=== PATIENT | female | born 1975 ===

== ENCOUNTER 2019-03-23 19:28 | Inpatient (IN) | payer OTHER ==
[~2019-03-23] VITALS: Ht 152.4 cm; Wt 64.0 kg
[2019-03-23 20:09] LABS: BASOPHILS ABSOLUTE AUTO 0.06 K/mm3 (0.00-0.23); BASOPHILS PERCENT AUTO 1 % (0-2); EOSINOPHILS ABSOLUTE AUTO 0.03 K/mm3 (0.00-0.68); EOSINOPHILS PERCENT AUTO 1 % (0-6); Hematocrit 40.2 % (33.0-51.0); Hemoglobin 13.2 g/dL (11.5-16.0); IMMATURE GRAN ABSOLUTE AUTO 0.02 K/mm3 (0.00-0.10); IMMATURE GRAN PERCENT AUTO 0 % (0-1); LYMPHOCYTES ABSOLUTE AUTO 0.96 K/mm3 (0.84-5.20); LYMPHOCYTES PERCENT AUTO 17 % (21-46); MONOCYTES ABSOLUTE AUTO 0.36 K/mm3 (0.16-1.47); MONOCYTES PERCENT AUTO 6 % (4-13); Mean Corpuscular HGB 33.8 pg (26.0-34.0); Mean Corpuscular HGB Conc 32.8 g/dL (31.5-36.5); Mean Corpuscular Volume 103 fL (80-100); Mean Platelet Volume 10.5 fL (9.1-12.4); NEUTROPHILS ABSOLUTE AUTO 4.22 K/mm3 (1.96-9.15); NEUTROPHILS PERCENT AUTO 75 % (41-73); RDW Coefficient Variation 14.5 % (11.7-14.2); RDW Standard Deviation 54.5 fL (35.1-46.3); Red Blood Cell Count 3.91 M/mm3 (3.80-5.20); White Blood Cell Count 5.65 K/mm3 (4.00-11.30)
[2019-03-23 20:16] LABS: Platelet Count 40 K/mm3 (150-400)
[2019-03-23 20:22] LABS: Alanine Aminotransfer (ALT/SGP 56 U/L (12-78); Albumin, Blood 1.5 g/dL (3.4-5.0); Albumin/Globulin Ratio 0.3 (0.8-1.8); Alk Phos 215 U/L (50-136); Anion Gap 5 mmol/L (6-16); Aspartate Aminotrans (AST/SGOT 244 U/L (12-37); Bilirubin, Total 4.3 mg/dL (0.1-1.0); Blood Urea Nitrogen 11 mg/dL (8-24); Bun/Creatinine Ratio 20.8 (12.0-20.0); CO2, Blood 26 mmol/L (21-32); Calcium, Blood 7.8 mg/dL (8.5-10.1); Chloride, Blood 106 mmol/L (98-108); Creatinine, Blood 0.53 mg/dL (0.40-1.00); Globulin, Blood 4.8 g/dL (2.2-4.0); Glomerular Filtration Rate >60 (60-); Glucose, Blood 99 mg/dL (70-99); Potassium, Blood 3.4 mmol/L (3.5-5.5); Sodium, Blood 137 mmol/L (136-145); Total Protein, Blood 6.3 g/dL (6.4-8.2)
[2019-03-23 20:46] LABS: International Normalized Ratio 1.53; Prothrombin Time Results 15.6 Sec (9.7-11.5)
[2019-03-23 23:23] LABS: Magnesium, Blood 1.4 mg/dL (1.6-2.4)
[2019-03-23 23:24] LABS: Thyroid Stimulating Hormone 3.53 uIU/mL (0.360-4.800)
--- NOTE | 2019-03-24 00:30 | NUR ---
ADMIT NOTE: ADMIT 43 YEAR OLD FEMALE TO ICU [address] CHAUDHARY SERVICE PER CHELA VIA ER. TRANSFER TO BED MONITOR PLACED SHOWING SINUS RHYTHM. HEART RATE 80'S-90'S. SLEEPY AWAKENS TO VERBAL STIMULI FOLLOWS DIRECTION HOWEVER FALLS BACK TO SLEEP IMMEDIATLY. LUNG SOUNDS CLEAR . SNORES WHEN SLEEPING. ABDOMEN SOFT WITH BOWEL SOUNDS FOUR QUADS. SPO2 95-97% SKIN WITH DRY RED PATCHES TO ARMS AND LEGS ALSO SCATTERED ECCYMOTIC AREAS TO SAME. JESSENIA MERCEDES UNABLE TO COMPLETE RELEASE OF MEDICAL INFORMATION AND BLOOD CONSENT SECONDARY UNABLE TO STAY AWAKE. CONTINUE TO MONITOR AND REPORT CHANGE IN PATIENT CONDITION CIWA LESS THAN 5. SEE FLOW SHEET.
[2019-03-24 03:19] LABS: BASOPHILS ABSOLUTE AUTO 0.06 K/mm3 (0.00-0.23); BASOPHILS PERCENT AUTO 1 % (0-2); EOSINOPHILS ABSOLUTE AUTO 0.06 K/mm3 (0.00-0.68); EOSINOPHILS PERCENT AUTO 1 % (0-6); Hematocrit 35.8 % (33.0-51.0); Hemoglobin 11.7 g/dL (11.5-16.0); IMMATURE GRAN ABSOLUTE AUTO 0.01 K/mm3 (0.00-0.10); IMMATURE GRAN PERCENT AUTO 0 % (0-1); LYMPHOCYTES ABSOLUTE AUTO 1.57 K/mm3 (0.84-5.20); LYMPHOCYTES PERCENT AUTO 29 % (21-46); MONOCYTES ABSOLUTE AUTO 0.35 K/mm3 (0.16-1.47); MONOCYTES PERCENT AUTO 7 % (4-13); Mean Corpuscular HGB 33.5 pg (26.0-34.0); Mean Corpuscular HGB Conc 32.7 g/dL (31.5-36.5); Mean Corpuscular Volume 103 fL (80-100); Mean Platelet Volume 10.9 fL (9.1-12.4); NEUTROPHILS ABSOLUTE AUTO 3.29 K/mm3 (1.96-9.15); NEUTROPHILS PERCENT AUTO 62 % (41-73); RDW Coefficient Variation 14.5 % (11.7-14.2); RDW Standard Deviation 54.9 fL (35.1-46.3); Red Blood Cell Count 3.49 M/mm3 (3.80-5.20); White Blood Cell Count 5.34 K/mm3 (4.00-11.30)
[2019-03-24 03:23] LABS: Platelet Count 35 K/mm3 (150-400)
[2019-03-24 03:34] LABS: Alanine Aminotransfer (ALT/SGP 46 U/L (12-78); Albumin, Blood 1.3 g/dL (3.4-5.0); Albumin/Globulin Ratio 0.3 (0.8-1.8); Alk Phos 166 U/L (50-136); Anion Gap 7 mmol/L (6-16); Aspartate Aminotrans (AST/SGOT 181 U/L (12-37); Bilirubin, Total 3.2 mg/dL (0.1-1.0); Blood Urea Nitrogen 11 mg/dL (8-24); Bun/Creatinine Ratio 23.9 (12.0-20.0); CO2, Blood 26 mmol/L (21-32); Calcium, Blood 7.3 mg/dL (8.5-10.1); Chloride, Blood 109 mmol/L (98-108); Creatinine, Blood 0.46 mg/dL (0.40-1.00); Glomerular Filtration Rate >60 (60-); Glucose, Blood 104 mg/dL (70-99); Magnesium, Blood 1.4 mg/dL (1.6-2.4); Potassium, Blood 3.7 mmol/L (3.5-5.5); Sodium, Blood 142 mmol/L (136-145); Total Protein, Blood 5.3 g/dL (6.4-8.2)
--- NOTE | 2019-03-24 03:39 | NUR ---
NOTIFIED; DR CHAUDHARY NOTIFIED OF MG RESULTS NO ORDERS NOTED.
--- NOTE | 2019-03-24 04:00 | NUR ---
DR CHAUDHARY NOTIFIED OF PLATLET RESULTS OF 35. NO NEW ORDERS
--- NOTE | 2019-03-24 05:29 | NUR ---
SHIFT SUMMARY : RESTS QUIETLY WHEN UNDISTURBED AWAKENS EASILY. UP TO BSC TO VOID DARK RUSTAM URINE. GAIT UNSTEADY BED ALARM ON SECONDARY TO IMPULSIVE BEHAVIORS. MONITOR INTACT SHOWING SINUS RHYTHM . HEART RATE 80'S-90'S. C/O SLIGHT HEADACHE AND NAUSEA. LUNGS REMAIN CLEAR WITH SPO2 95-98% SNORES WHEN ASLEEP. ABDOMEN SOFT WITH BOWEL SOUNDS FOUR QUADS. CONTINUE TO MONITOR AND REPORT CHANGE IN PATIENT CONDITION. CIWA REMAINS LESS THAN 5
--- NOTE | 2019-03-24 08:04 | NUR ---
ASSUMED CARE / DR TURK: REPORT RECEIVED FROM MARLA An RN. ASSUMED CARE OF THIS PT AT APPROX 0700. PT IS DROWSY, SHE AWAKENS EASILY TO VERBAL STIMULI BUT FALLS BACK ASLEEP QUICKLY. WHEN AWAKE, SHE IS A&O, PLEASANT & COOPERATIVE. CIWA CHARTED. PROVIDER AT BEDSIDE. SHE HAS SLEPT THROUGH HIS VISIT/ASSESSMENT. CONTINUE ETOH W/D ORDERS & MEDS. NO OTHER CHANGES AT THIS TIME. WILL CONTINUE TO MONITOR & UPDATE NEEDED.
--- NOTE | 2019-03-24 14:30 | NUR ---
CALL TO DR TURK: PT STS HER LAST DRINK WAS "AT THE BEGINNING OF LAST WEEK, EITHER SATURDAY OR SATURDAY" (03/15 OR 03/16). CALL TO PROVIDER TO NOTIFY HIM OF THIS INFO & OF PT's CONTINUED LOW CIWA SCORES < 5. DIET ORDER ALSO REQUESTED PT IS NOW MORE AWAKE & STATING HUNGER. PROVIDER STS THAT STATUS MAY BE CHANGED TO MED NO TELE & THAT REGULAR DIET MAY BE ORDERED. SEIZURE PRECAUTIONS TO REMAINS IN PLACE & MEDS TO REMAIN PRN ORDERED. WILL CONTINUE TO MONITOR & UPDATE NEEDED.
[2019-03-24 15:24] LABS: Source, Urine Clean Catch
[2019-03-24 16:08] LABS: Bilirubin, Urine Neg (Neg); Blood, Urine 2+ (Neg); Glucose Qualitative, Urine Neg (Neg); Ketones, Urine Neg (Neg); Leukocyte Esterase, Urine 1+ (Neg); Nitrite, Urine Neg (Neg); Protein, Urine Neg (Neg); Urobilinogen, Urine NORM (Normal)
[2019-03-24 16:23] LABS: U Amphetamine Screen Not Detected; U Barbituate Screen Not Detected; U Benzodiazapine Screen DETECTED; U Buprenorphine Screen Not Detected; U Cannabinoids Screen Not Detected; U Cocaine Screen Not Detected; U Methadone Screen Not Detected; U Methamphetamine Screen Not Detected; U Opiates Screen Not Detected; U Oxycodone Screen Not Detected; U Phencyclidine Screen Not Detected; U Propoxyphene Screen Not Detected
[2019-03-24 16:37] LABS: Appearance, Urine Hazy (Clear); Color, Urine Yellow (P-Yellow)
[2019-03-24 16:38] LABS: Squamous Epithelial Cells Mod /hpf (Few)
[2019-03-24 16:39] LABS: Bacteria Few /hpf
--- NOTE | 2019-03-24 17:40 | NUR ---
SHIFT SUMMARY / MED FLOOR ROOM ASSIGNMENT: NO ACUTE CHANGES THIS SHIFT. CIWA REMAINS < 5. PT A&O, MORE AWAKE THIS AFTERNOON. SHE STS GENERALIZED SORENESS FROM FALL DURING SEIZURE BUT HAS NO REQUEST FOR PAIN MEDS. LUNG SOUNDS ARE CLEAR T/O, PT ON RA W/ O2 SATS > 92%. TELE HAS BEEN REMOVED, BP STABLE. ABD IS ROUND, MILD DISTENTION & SOFT TO PALPATION. PARACENTESIS LAST WK IN [place] PER PT REPORT. PT VOIDS W/O DIFFICULTY, URINE SENT TO LAB PER ORDERS. SKIN UNCHANGED FROM AM ASSESSMENT, PSORIASIS PLAQUES PRESENT ON LEGS & SOME BRUISING ALSO NOTED TO THIGHS, PT STS BRUISING IS FROM FALL/ SEIZURES. SHE IS TOLERATING PO INTAKE OF FOOD/FLUIDS WELL W/ NO NAUSEA. ROOM 327 HAS BEEN ASSIGNED FOR TX. WILL CONTINUE TO MONITOR & REPORT OFF TO RN ASSUMING CARE.
--- NOTE | 2019-03-24 23:39 | NUR ---
03/24/191999 BOTH IV SITES ARE IN LEFT ANTECUBITAL AREA. ONE NEEDLE IS A 22G AND OTHER IS 20G.
[2019-03-25 05:04] LABS: Hematocrit 33.1 % (33.0-51.0); Hemoglobin 10.8 g/dL (11.5-16.0); Mean Corpuscular HGB 33.6 pg (26.0-34.0); Mean Corpuscular HGB Conc 32.6 g/dL (31.5-36.5); Mean Corpuscular Volume 103 fL (80-100); Mean Platelet Volume 11.6 fL (9.1-12.4); RDW Coefficient Variation 14.7 % (11.7-14.2); RDW Standard Deviation 55.3 fL (35.1-46.3); Red Blood Cell Count 3.21 M/mm3 (3.80-5.20); White Blood Cell Count 4.12 K/mm3 (4.00-11.30)
[2019-03-25 05:11] LABS: Platelet Count 47 K/mm3 (150-400)
[2019-03-25 05:32] LABS: Alanine Aminotransfer (ALT/SGP 34 U/L (12-78); Albumin, Blood 1.1 g/dL (3.4-5.0); Albumin/Globulin Ratio 0.3 (0.8-1.8); Alk Phos 131 U/L (50-136); Anion Gap 5 mmol/L (6-16); Aspartate Aminotrans (AST/SGOT 118 U/L (12-37); Bilirubin, Total 1.7 mg/dL (0.1-1.0); Blood Urea Nitrogen 8 mg/dL (8-24); Bun/Creatinine Ratio 17.8 (12.0-20.0); CO2, Blood 27 mmol/L (21-32); Calcium, Blood 7.2 mg/dL (8.5-10.1); Chloride, Blood 110 mmol/L (98-108); Creatinine, Blood 0.45 mg/dL (0.40-1.00); Globulin, Blood 3.8 g/dL (2.2-4.0); Glomerular Filtration Rate >60 (60-); Glucose, Blood 107 mg/dL (70-99); Potassium, Blood 3.5 mmol/L (3.5-5.5); Sodium, Blood 142 mmol/L (136-145); Total Protein, Blood 4.9 g/dL (6.4-8.2)
--- NOTE | 2019-03-25 08:06 | NUR ---
03/25/19 0600 VITALS STABLE. NO SEIZURES THIS SHIFT. CIWA SCORES STABLE. UNEVENTFUL NIGHT.
--- NOTE | 2019-03-25 11:23 | NUR ---
HER FOOT XRAY HAS BEEN DONE. I HAVE CALLED THE ORTHOPEDIC CONSULT FOR HER FRACTURED GREAT TOE. SHE DID NOT EAT MUCH BREAKFAST AND HAS BEEN SNORING ALL MORNING IF WE ARE NOT WORKING WITH HER. SHE IS ABLE TO AMBULATE TO THE BATHROOM AND BACK WITHOUT DIFFICULTY. WILL START LASIX, ALDACTONE AND BOWELL CARE WHEN SHE WAKES UP FOR LUNCH.
--- NOTE | 2019-03-25 12:58 | NUR ---
SHE DIDN'T EAT MUCH LUNCH BECAUSE OF HER PAINFUL TONGUE. THE WHOLE R SIDE OF IT AND SOME ON TOP IS BRUISED. SHE BIT IT DURING HER SEIZURE AT HOME. I TOOK HER A CHOCOLATE PUDDING. SHE SAID SOUP WOULD BE TOO HOT. HAS NOT CONSULTED YET.
[2019-03-25] MEDS ORDERED: FURO40 PO (13:37)
[2019-03-25] MEDS ORDERED: Aldactone50 MG PO (13:50)
--- NOTE | 2019-03-25 17:59 | NUR ---
SHE DISCHARGED HOME AT 1715 WITH BELONGINGS AND INSTRUCTIONS. SHE KNOWS SHE NEEDS TO CALL THE OHP NUMBER GIVEN TO HER BY THE COMMUNICATIONS INSTRUCTOR TO START UP HER OHP HERE IN [facility]. SHE THOUGHT THE ORTHPEDIC DOCTOR SAW HER THIS AFTERNOON WHILE I WAS AT LUNCH AND TOLD ME THAT. CAME BY TO SEE HER ABOUT 10 MIN AFTER FRANCIE DISCHARGED HOME. SAID NO PROBLEM. SHE WILL HAVE HER OFFICE CALL FRANCIE AT HOME. I THEN CALLED TO NOTIFY HIM THAT HAD NOT SEEN THE PATIENT LIKE I THOUGHT SHE HAD. I HAD ALREADY CALLED FRANCIE'S MOM JERAD TO INFORM HER THAT SINCE THE ORTHOPEDIC DOCTOR DID NOT SEE FRANCIE HERE HER OFFICE WILL CALL HER TO PROBABLY SET UP AN APPT.
== END 2019-03-25 17:15 | disposition home or self-care (01) | DRG 897 ==
LOC: ER 19:28 → ICUE 23:10 → ICUW 23:10 → ICUE 03-24 00:28 → MEDS 03-24 00:31 → ICUE 03-24 14:24 → MEDS 03-24 18:57 → ENPENDDIS 03-25 11:09 → MEDS 03-25 17:15
PROVIDERS: Internal Medicine; Nurse Practitioner Acute Care; Physician Assistant; ADMIT Family Medicine
DX: F10.239 Alcohol dependence with withdrawal, unspecified (principal); K70.31 Alcoholic cirrhosis of liver with ascites; D69.6 Thrombocytopenia, unspecified; F17.210 Nicotine dependence, cigarettes, uncomplicated; S92.402A Displaced unspecified fracture of left great toe, initial encounter for closed fracture; R94.5 Abnormal results of liver function studies; R56.9 Unspecified convulsions
CPT/HCPCS: 36415; 70450; 73630; 76700; 80053; 80177; 81001; 82140; 82947; 83735; 84443; 85025; 85027; 85610; 85730; 93005; 93010; 96374; 99285-25; C9113; G0480; J1953; J2060; J3411; J3475; J3480; J7042

== ENCOUNTER → 2019-07-10 | Outpatient (CLI) | payer OTHER ==
[~2019-07-10] MED LIST: Aldactone50 MG PO; FURO40 PO
[2019-07-15 02:06] LABS: CHLAMYDIA TRACHOMATIS, NAA Negative (Negative); HPV 16 Negative (Negative); HPV 18 Negative (Negative); HPV OTHER HR TYPES Positive (Negative); NEISSERIA GONORRHOEAE, NAA Negative (Negative)
== END | disposition home or self-care (01) ==
LOC: LAB SHORT 17:35 → LAB 17:35
PROVIDERS: Nurse Practitioner Family
DX: Z01.419 Encounter for gynecological examination (general) (routine) without abnormal findings (principal); N89.8 Other specified noninflammatory disorders of vagina
CPT/HCPCS: 87086; 87491; 87591; 87624; 87625; G0145

== ENCOUNTER 2019-09-11 07:51 | Day surgery (SDC) | payer OTHER ==
[~2019-09-11] VITALS: Ht 152.4 cm; Wt 65.8 kg
--- NOTE | 2019-09-11 08:51 | NUR ---
09/11/19 0851 Zoey Mcleod 1 IV MISS IN RH BY STEPHAN VALVE 1 GOOD IV IN LH BY NICHOLAS PT TOW
== END 2019-09-11 10:10 | disposition home or self-care (01) ==
LOC: ORSCSDS 07:51
PROVIDERS: Internal Medicine Gastroenterology
PROC: 0DJ08ZZ Inspection of Upper Intestinal Tract, Via Natural or Artificial Opening Endoscopic (ICD-10-PCS; principal; 2019-09-11 09:45)
DX: K74.60 Unspecified cirrhosis of liver (principal); G40.909 Epilepsy, unspecified, not intractable, without status epilepticus; F41.8 Other specified anxiety disorders; J45.909 Unspecified asthma, uncomplicated; F17.210 Nicotine dependence, cigarettes, uncomplicated; Z79.899 Other long term (current) drug therapy
CPT/HCPCS: J2250; J2704; J7120

== ENCOUNTER → 2020-02-25 | Outpatient (CLI) | payer OTHER | END | disposition home or self-care (01) | LOC: LAB SHORT 13:11 → LAB 13:11 | DX: R30.9 Painful micturition, unspecified (principal) | CPT/HCPCS: 87086 ==

== ENCOUNTER 2020-03-16 06:35 | Inpatient (IN) | payer OTHER ==
[~2020-03-16] VITALS: Ht 165.1 cm; Wt 65.8 kg
[2020-03-16 07:29] LABS: BASOPHILS ABSOLUTE AUTO 0.05 K/mm3 (0.00-0.23); BASOPHILS PERCENT AUTO 1 % (0-2); EOSINOPHILS PERCENT AUTO 1 % (0-6); Hematocrit 47.1 % (33.0-51.0); Hemoglobin 15.9 g/dL (11.5-16.0); IMMATURE GRAN ABSOLUTE AUTO 0.01 K/mm3 (0.00-0.10); IMMATURE GRAN PERCENT AUTO 0 % (0-1); LYMPHOCYTES ABSOLUTE AUTO 3.51 K/mm3 (0.84-5.20); LYMPHOCYTES PERCENT AUTO 46 % (21-46); MONOCYTES ABSOLUTE AUTO 0.21 K/mm3 (0.16-1.47); MONOCYTES PERCENT AUTO 3 % (4-13); Mean Corpuscular HGB 31.2 pg (26.0-34.0); Mean Corpuscular HGB Conc 33.8 g/dL (31.5-36.5); Mean Corpuscular Volume 93 fL (80-100); Mean Platelet Volume 10.2 fL (9.1-12.4); NEUTROPHILS ABSOLUTE AUTO 3.84 K/mm3 (1.96-9.15); NEUTROPHILS PERCENT AUTO 50 % (41-73); Platelet Count 143 K/mm3 (150-400); RDW Coefficient Variation 14.1 % (11.7-14.2); RDW Standard Deviation 47.3 fL (35.1-46.3); Red Blood Cell Count 5.09 M/mm3 (3.80-5.20); White Blood Cell Count 7.72 K/mm3 (4.00-11.30)
[2020-03-16 07:47] LABS: Alanine Aminotransfer (ALT/SGP 54 U/L (12-78); Albumin, Blood 3.9 g/dL (3.4-5.0); Albumin/Globulin Ratio 0.9 (0.8-1.8); Alk Phos 107 U/L (50-136); Anion Gap 11 mmol/L (6-16); Aspartate Aminotrans (AST/SGOT 59 U/L (12-37); Blood Urea Nitrogen 7 mg/dL (8-24); Bun/Creatinine Ratio 11.8 (12.0-20.0); CO2, Blood 21 mmol/L (21-32); Calcium, Blood 8.6 mg/dL (8.5-10.1); Chloride, Blood 118 mmol/L (98-108); Creatinine, Blood 0.59 mg/dL (0.40-1.00); Ethanol (Alcohol), Blood, Med 255 mg/dL; Globulin, Blood 4.3 g/dL (2.2-4.0); Glomerular Filtration Rate >60 (60-); Glucose, Blood 77 mg/dL (70-99); Potassium, Blood 3.4 mmol/L (3.5-5.5); Sodium, Blood 150 mmol/L (136-145); Total Protein, Blood 8.2 g/dL (6.4-8.2)
[2020-03-16 08:02] LABS: International Normalized Ratio 1.17; Prothrombin Time Results 12.4 Sec (9.7-11.5)
[2020-03-16 08:52] LABS: Anion Gap 11 mmol/L (6-16); Blood Urea Nitrogen 6 mg/dL (8-24); Bun/Creatinine Ratio 10.4 (12.0-20.0); CO2, Blood 20 mmol/L (21-32); Calcium, Blood 8.3 mg/dL (8.5-10.1); Chloride, Blood 118 mmol/L (98-108); Creatinine, Blood 0.58 mg/dL (0.40-1.00); Glomerular Filtration Rate >60 (60-); Glucose, Blood 81 mg/dL (70-99); Potassium, Blood 3.5 mmol/L (3.5-5.5)
[2020-03-16 09:04] LABS: Sodium, Blood 149 mmol/L (136-145)
[2020-03-16 09:36] LABS: Albumin, Blood 3.9 g/dL (3.4-5.0); Anion Gap 14 mmol/L (6-16); Blood Urea Nitrogen 7 mg/dL (8-24); Bun/Creatinine Ratio 11.3 (12.0-20.0); CO2, Blood 18 mmol/L (21-32); Calcium, Blood 8.5 mg/dL (8.5-10.1); Chloride, Blood 118 mmol/L (98-108); Creatinine, Blood 0.62 mg/dL (0.40-1.00); Glomerular Filtration Rate >60 (60-); Glucose, Blood 76 mg/dL (70-99); Phosphorus, Blood 4.6 mg/dL (2.5-4.9); Potassium, Blood 3.5 mmol/L (3.5-5.5); Sodium, Blood 150 mmol/L (136-145)
[2020-03-16 11:13] LABS: Source, Urine Clean Catch
[2020-03-16 11:39] LABS: Appearance, Urine Clear (Clear); Bilirubin, Urine Neg (Neg); Blood, Urine 4+ (Neg); Color, Urine Yellow (P-Yellow); Glucose Qualitative, Urine Neg (Neg); Ketones, Urine Neg (Neg); Leukocyte Esterase, Urine Neg (Neg); Nitrite, Urine Neg (Neg); Protein, Urine 3+ (Neg); Urobilinogen, Urine NORM (Normal)
[2020-03-16 11:50] LABS: Potassium, Urine, Random 46.2 mmol/L (12.0-75.0)
[2020-03-16 11:52] LABS: Bacteria Few /hpf; Squamous Epithelial Cells Few /hpf (Few)
[2020-03-16 15:10] LABS: Anion Gap 7 mmol/L (6-16); Blood Urea Nitrogen 7 mg/dL (8-24); Bun/Creatinine Ratio 12.1 (12.0-20.0); CO2, Blood 21 mmol/L (21-32); Calcium, Blood 7.6 mg/dL (8.5-10.1); Chloride, Blood 116 mmol/L (98-108); Creatinine, Blood 0.58 mg/dL (0.40-1.00); Glomerular Filtration Rate >60 (60-); Glucose, Blood 91 mg/dL (70-99); Potassium, Blood 3.8 mmol/L (3.5-5.5); Sodium, Blood 144 mmol/L (136-145)
--- NOTE | 2020-03-16 16:22 | NUR ---
SHIFT SUMMARY PT ARRIVED TO UNIT WITH S/O CHARLEY AT ~1345. LETHARGIC, WAKES TO PRESSURE, ORIENTED TO SELF, PLACE, TIME. UNAWARE OF SEIZURE ACTIVITY. CIWA SCORE OF 13. HOPSITALIST NOTIFIED. TELE OF NORMAL SINUS, 67 BPM @ 1620. ABLE TO TXFR TO BSC WITH X1A, 200CC VOID. NO SEIZURES OBSERVED WHILE ON MEDS AT THIS TIME. SUCTION, O2, BED ALARM, AND PADDED SIDE RAILS IN PLACE. S/O OTHER AT BEDSIDE. NA OF 150, DROPPED TO 144 AT 1435. MD NOTIFIED AND IV FLUIDS MODIFIED PER ORDERS ON EMAR. PT NOW MORE AROUSABLE AND WAKES TO VOICE.
--- NOTE | 2020-03-16 18:45 | NUR ---
ASSUMED CARE RECEIVED REPORT FROM NICHOLAS SOLOMON. ASSUMED CARE OF PT. ASLEEP AT THIS TIME, NO S/S ACUTE DISTRESS NOTED. PT S/O AT BEDSIDE. CALL LIGHT, POSSESSIONS IN REACH, SEIZURE PADS TO SIDE RAILS, SAFETY ALARMS ON. WILL CONTINUE TO MONITOR.
--- NOTE | 2020-03-17 05:08 | NUR ---
SHIFT SUMMARY PT HAS BEEN AWAKE OFF AND ON T/O NIGHT, NO SEIZURE ACTIVITY NOTED AT THIS POINT. CIWAS RANGING 2-8. MEDICATED PER EMAR. PT TOLERATED WELL. VSS. TOLERATING CLEAR LIQUID DIET WELL, NO C/O GI UPSET. WAS MONITORED EVERY 1-2 HOURS WITH NEEDS MET. DENIES NEEDS AT THIS TIME. CALL LIGHT, POSSESSIONS IN REACH, BED IN LOWEST POSITION WITH ALARMS ON. WILL CONTINUE TO MONITOR AND PROVIDE CARE NEEDED UNTIL DAY RN ASSUMES CARE.
[2020-03-17 05:47] LABS: Alanine Aminotransfer (ALT/SGP 39 U/L (12-78); Albumin/Globulin Ratio 0.9 (0.8-1.8); Alk Phos 84 U/L (50-136); Anion Gap 5 mmol/L (6-16); Aspartate Aminotrans (AST/SGOT 43 U/L (12-37); Bilirubin, Direct 0.5 mg/dL (0.0-0.3); Bilirubin, Indirect 1.3 mg/dL (0.1-0.7); Bilirubin, Total 1.8 mg/dL (0.1-1.0); Blood Urea Nitrogen 7 mg/dL (8-24); CO2, Blood 23 mmol/L (21-32); Calcium, Blood 7.7 mg/dL (8.5-10.1); Chloride, Blood 113 mmol/L (98-108); Creatinine, Blood 0.59 mg/dL (0.40-1.00); Globulin, Blood 3.4 g/dL (2.2-4.0); Glomerular Filtration Rate >60 (60-); Glucose, Blood 93 mg/dL (70-99); Phosphorus, Blood 3.3 mg/dL (2.5-4.9); Potassium, Blood 3.9 mmol/L (3.5-5.5); Sodium, Blood 141 mmol/L (136-145); Total Protein, Blood 6.4 g/dL (6.4-8.2)
--- NOTE | 2020-03-17 19:00 | NUR ---
ASSUMED CARE REPORT RECEIVED FROM NICHOLAS CARSON. ASSUMED CARE OF PT. THIS RN IN ROOM HANGING IVF, PT ASLEEP, RESPONSIVE TO VERBAL STIMULI. RESPS EVEN AND UNLABORED, NO S/S ACUTE DISTRESS NOTED. RE-CONNECTED TO CONTINUOUS PULSE-OX, O2 SATS STABLE ON RA. PT APPEARS COMFORTABLE, NO SIGNS OF PAIN NOTED. DENIES NEEDS AT THIS TIME. CALL LIGHT, POSSESSIONS IN REACH, BED IN LOWEST POSITION WITH SAFETY ALARMS ON. WILL CONTINUE TO MONITOR PT AND PROVIDE CARE NEEDED T/O NIGHT.
--- NOTE | 2020-03-17 19:04 | NUR ---
PT AWAKE, ALERT AND ORIENTED THIS MORNING, LATE MORNING SHE WAS REPORTING SOME PAIN/MUSCLE SPASM OF HER LOWER BACK AND SHE WAS HAVING A DIFFICULT TIME SLEEPING. PT SPOKE WITH DR MASON REGARDING THIS DISCOMFORT AND PO FLEXERIL WAS ORDERED. PER PT SHE TAKES FLEXERIL AND TRAMADOL AT HOME FOR BACK PAIN. PT HAS BEEN VERY DROWSY AND SLEEPY THIS AFTERNOON. HEAD CT ORDERED AND DONE. EEG TO BE DONE IN EARLY AM, PER [employer]IO RENEWABLE ENERGY DIVISION MANAGER IT WILL NOT BE READ UNTIL SATURDAY WHEN DR MONTOYA RETURNS FROM VACATION. DR MASON IS AWARE. WILL CONTINUE TO MONITOR AND REPORT TO ONCOMING RN.
[2020-03-18 05:25] LABS: Alanine Aminotransfer (ALT/SGP 46 U/L (12-78); Albumin, Blood 3.2 g/dL (3.4-5.0); Albumin/Globulin Ratio 0.9 (0.8-1.8); Alk Phos 107 U/L (50-136); Anion Gap 7 mmol/L (6-16); Aspartate Aminotrans (AST/SGOT 55 U/L (12-37); Bilirubin, Total 1.2 mg/dL (0.1-1.0); Blood Urea Nitrogen 6 mg/dL (8-24); Bun/Creatinine Ratio 8.8 (12.0-20.0); CO2, Blood 22 mmol/L (21-32); Chloride, Blood 114 mmol/L (98-108); Creatinine, Blood 0.68 mg/dL (0.40-1.00); Globulin, Blood 3.4 g/dL (2.2-4.0); Glomerular Filtration Rate >60 (60-); Glucose, Blood 107 mg/dL (70-99); Magnesium, Blood 1.9 mg/dL (1.6-2.4); Phosphorus, Blood 3.7 mg/dL (2.5-4.9); Potassium, Blood 3.6 mmol/L (3.5-5.5); Sodium, Blood 143 mmol/L (136-145); Total Protein, Blood 6.6 g/dL (6.4-8.2)
--- NOTE | 2020-03-18 06:27 | NUR ---
SHIFT SUMMARY PT HAS HAD AN UNEVENTFUL NIGHT. NO SEIZURES T/O NIGHT. PT SLEPT T/O. MEDICATED X1 FOR C/O BACK SPASMS, EFFECTIVE, PT SLEEPING AT THIS TIME. CALLED APPROPRIATELY TO USE THE BSC, STEADY. MINIMAL DIZZINESS. VSS. PT DENIES NEEDS. CALL LIGHT, POSSESSIONS IN REACH, BED IN LOWEST POSITION WITH ALARMS ON. EEG IN PROGRESS. WILL CONTINUE TO MONITOR AND PROVIDE CARE NEEDED UNTIL DAY RN ASSUMES CARE.
[2020-03-18] MEDS ORDERED: TRAM50 PO (10:00)
[2020-03-18] MEDS ORDERED: ACET500 PO (10:00)
[2020-03-18] MEDS ORDERED: CYCLOBENZAPRINE5 MG PO (10:01)
--- NOTE | 2020-03-18 13:01 | NUR ---
CUTTER GAS CALLED THIS RN TO THE BEDSIDE, PT SITTING ON THE FLOOR VOMITING IN TO THE TRASH CAN. ASKED IF THE PT FELL THERE SHE STATED NO SHE GOT DOWN ON THE FLOOR TO VOMIT IN THE GARBAGE. MEDICATED WITH PRN ZOFRAN IV. PT STATED SHE WAS FEELING ANXIOUS, HAD A HEADACHE VISIBLE SWEAT MINIMAL TREMMORS WHEN THE PT WAS ASSISTED BACK TO BED. PT STATED MATHEW WAS 6/10 WHILE IN BED AT REST, WHEN SHE GETS UP IT GETS "MUCH WORSE." CIWA COMPLETED AND PT SCORED A 19 WILL SPEAK TO BEDSIDE RN ABOUT MEDICATION ONCE NAUSEA HAS RESOLVED.
--- NOTE | 2020-03-18 13:25 | NUR ---
SECOND EPISODE OF EMESIS OF 300 ML, PT WAS SITTING ON BSC, RETURNED TO EDGE OF BED AND IS NOW RECLINING. EXPRESSES SOME ANXIETY AND CONTINUED NAUSEA, MEDICATED WITH 0.25 MG IV ATIVAN X1. WILL MONITOR
--- NOTE | 2020-03-18 17:59 | NUR ---
PT HAS BEEN SLEEPING ALOT THIS AFTERNOON AFTER HER EPISODES OF EMESIS, NO FURTHER EMESIS REPORTED. SHE HAS BEEN UP TO THE [facility] SEVERAL TIMES FOR STOOL AND REFUSED HER 1700 DOSE OF LACTULOSE. SHE IS ATTEMPTING TO EAT DINNER AT THIS TIME. WILL CONTINUE TO MONITOR AND REPORT TO YOSVANY PETERSON
--- NOTE | 2020-03-19 04:00 | NUR ---
SHIFT SUMMARY: VSS. AFEB. AAOX3. LETHARGIC BUT AWAKENS EASILY W/VERBAL STIMULI. CIWA SCORE OF 8- LIBRIUM GIVEN- EFFECTIVE, PT HAS SLEPT WELL SINCE. CONT BIOX IN PLACE, 02 SATS WNL ON RA. NSR, 77 PER CARDIAC TELE MONITOR. PT REPORTING NUMEROUS BM'S. LACTULOSE GIVEN PER ORDERS, DOCUSATE HELD. REPORTED NAUSEA PRIOR TO RECEIVING LIBRIUM, NONE REPORTED SINCE. NO SEIZURE ACTIVITY TONIGHT. NEURO CHECKS WNL. WILL CONT TO MONITOR.
[2020-03-19 06:21] LABS: Alanine Aminotransfer (ALT/SGP 54 U/L (12-78); Albumin, Blood 3.1 g/dL (3.4-5.0); Albumin/Globulin Ratio 0.7 (0.8-1.8); Alk Phos 114 U/L (50-136); Anion Gap 6 mmol/L (6-16); Aspartate Aminotrans (AST/SGOT 41 U/L (12-37); Blood Urea Nitrogen 5 mg/dL (8-24); Bun/Creatinine Ratio 10.1 (12.0-20.0); CO2, Blood 23 mmol/L (21-32); Calcium, Blood 8.3 mg/dL (8.5-10.1); Chloride, Blood 112 mmol/L (98-108); Globulin, Blood 4.4 g/dL (2.2-4.0); Glomerular Filtration Rate >60 (60-); Glucose, Blood 94 mg/dL (70-99); Magnesium, Blood 1.7 mg/dL (1.6-2.4); Phosphorus, Blood 3.6 mg/dL (2.5-4.9); Potassium, Blood 3.5 mmol/L (3.5-5.5); Sodium, Blood 141 mmol/L (136-145); Total Protein, Blood 7.5 g/dL (6.4-8.2)
--- NOTE | 2020-03-19 17:15 | NUR ---
Shift Summary A/Ox3-4, pleasant with care. Up to bedside commode independently, encouraged ambulation in hallway as tolerated and up for meals. Patient has been resting in bed mostly though. No signs of seizures. C/O 8/10 headache this morning with nausea, mild tremors and moist paroxysmal sweat. Also c/o 7/10 back pain. Medicated x 1 per EMAR with good relief. Encouraged patient to ambulate to relieve back pain, patient stated understanding. Currently denies nausea at this time, no evidence of emesis. C/O abdominal cramping, to note, patient is taking lactulose. Patient refused a dose of lactulose this afternoon, has had at least 3 bm's this shift. No other concerns, will continue to monitor.
--- NOTE | 2020-03-20 04:08 | NUR ---
SHIFT SUMMARY: TEMP 99.0. VSS. LETHARGIC BUT RESPONDS READILY TO VERBAL STIMULI. CIWA SCORE OF 5. REFUSED LACTULOSE DUE TO SEVERAL BM'S DURING THE DAYTIME AND ABDOMINAL CRAMPING. PT UP AROUND MIDNIGHT, APPEARS MORE COMFORTABLE AND ALERT. WIDE AWAKE AND SNACKING ON APPLES. NO SEIZURE ACTIVITY. LITHOPRESS OPERATOR/PUSHES/PULLS EQUAL BILATERALLY. NO ACUTE CONCERNS.
[2020-03-20 05:39] LABS: Anion Gap 6 mmol/L (6-16); Blood Urea Nitrogen 6 mg/dL (8-24); Bun/Creatinine Ratio 12.2 (12.0-20.0); CO2, Blood 23 mmol/L (21-32); Calcium, Blood 7.8 mg/dL (8.5-10.1); Chloride, Blood 112 mmol/L (98-108); Creatinine, Blood 0.49 mg/dL (0.40-1.00); Glomerular Filtration Rate >60 (60-); Glucose, Blood 115 mg/dL (70-99); Potassium, Blood 3.6 mmol/L (3.5-5.5); Sodium, Blood 141 mmol/L (136-145)
[2020-03-20] MEDS ORDERED: LEVE500 PO (12:00)
[2020-03-20] MEDS ORDERED: LACT10SY PO (12:00)
--- NOTE | 2020-03-20 12:36 | NUR ---
Discharge Summary A/Ox3, patient discharging to home. Reviewed discharge paperwork with and patient. Questions were answered to their satisfaction. Meds were faxed to [facility] in [place]. Due to hours of operation, [facility]. Hard script for Keppra given to patient. Received verbal order to call in an order of lactulose 100 mL, this was called into [facility], patient notified. Return To Work notes given to patient per Dr. Awan's request. IV removed, WNL. Escorted by ALUMNAE SECRETARY via w/c. Transported by via personal transportation.
== END 2020-03-20 12:43 | disposition home or self-care (01) | DRG 897 ==
LOC: ER 06:35 → ERHOLD 06:36 → MEDS 13:33
PROVIDERS: Emergency Medicine; ADMIT Internal Medicine Endocrinology, Diabetes & Metabolism
DX: F10.239 Alcohol dependence with withdrawal, unspecified (principal); E87.0 Hyperosmolality and hypernatremia; E72.20 Disorder of urea cycle metabolism, unspecified; E86.0 Dehydration; F17.210 Nicotine dependence, cigarettes, uncomplicated; G40.909 Epilepsy, unspecified, not intractable, without status epilepticus; K70.30 Alcoholic cirrhosis of liver without ascites; R56.9 Unspecified convulsions; J45.909 Unspecified asthma, uncomplicated; F41.8 Other specified anxiety disorders
CPT/HCPCS: 36415; 70450; 80048; 80053; 80069; 80076; 81001; 82140; 82550; 83735; 83935; 84100; 84133; 84300; 84703; 85025; 85610; 85730; 94762; 95819; 96361; 96365; 96366; 96368; 96375; 99285-25; G0480; J2060; J2405; J3411; J3475; J3480; J7030; J7042; J7070

== ENCOUNTER 2020-03-26 02:17 | Observation (INO) | payer OTHER ==
[~2020-03-26] VITALS: Ht 152.4 cm; Wt 65.0 kg
[~2020-03-26 02:17] MED LIST changes: +ACET500 PO; +CYCLOBENZAPRINE5 MG PO; +LACT10SY PO; +LEVE500 PO; +TRAM50 PO
[2020-03-26 03:46] LABS: BASOPHILS ABSOLUTE AUTO 0.03 K/mm3 (0.00-0.23); BASOPHILS PERCENT AUTO 0 % (0-2); EOSINOPHILS ABSOLUTE AUTO 0.12 K/mm3 (0.00-0.68); EOSINOPHILS PERCENT AUTO 2 % (0-6); Hematocrit 40.3 % (33.0-51.0); Hemoglobin 13.9 g/dL (11.5-16.0); IMMATURE GRAN ABSOLUTE AUTO 0.02 K/mm3 (0.00-0.10); IMMATURE GRAN PERCENT AUTO 0 % (0-1); LYMPHOCYTES ABSOLUTE AUTO 3.68 K/mm3 (0.84-5.20); LYMPHOCYTES PERCENT AUTO 48 % (21-46); MONOCYTES ABSOLUTE AUTO 0.34 K/mm3 (0.16-1.47); MONOCYTES PERCENT AUTO 4 % (4-13); Mean Corpuscular HGB 32.1 pg (26.0-34.0); Mean Corpuscular HGB Conc 34.5 g/dL (31.5-36.5); Mean Corpuscular Volume 93 fL (80-100); Mean Platelet Volume 10.8 fL (9.1-12.4); NEUTROPHILS ABSOLUTE AUTO 3.48 K/mm3 (1.96-9.15); NEUTROPHILS PERCENT AUTO 45 % (41-73); Platelet Count 115 K/mm3 (150-400); RDW Coefficient Variation 14.3 % (11.7-14.2); RDW Standard Deviation 48.5 fL (35.1-46.3); Red Blood Cell Count 4.33 M/mm3 (3.80-5.20); White Blood Cell Count 7.67 K/mm3 (4.00-11.30)
[2020-03-26 04:03] LABS: Alanine Aminotransfer (ALT/SGP 61 U/L (12-78); Albumin, Blood 3.6 g/dL (3.4-5.0); Albumin/Globulin Ratio 0.9 (0.8-1.8); Alk Phos 126 U/L (50-136); Anion Gap 9 mmol/L (6-16); Aspartate Aminotrans (AST/SGOT 129 U/L (12-37); Bilirubin, Total 0.7 mg/dL (0.1-1.0); Blood Urea Nitrogen 5 mg/dL (8-24); Bun/Creatinine Ratio 8.5 (12.0-20.0); CO2, Blood 25 mmol/L (21-32); Calcium, Blood 8.2 mg/dL (8.5-10.1); Chloride, Blood 116 mmol/L (98-108); Creatinine, Blood 0.59 mg/dL (0.40-1.00); Ethanol (Alcohol), Blood, Med 290 mg/dL; Globulin, Blood 3.9 g/dL (2.2-4.0); Glomerular Filtration Rate >60 (60-); Glucose, Blood 81 mg/dL (70-99); Potassium, Blood 3.6 mmol/L (3.5-5.5); Sodium, Blood 150 mmol/L (136-145); Total Protein, Blood 7.5 g/dL (6.4-8.2); Troponin I 0.032 ng/mL (0.000-0.040)
--- NOTE | 2020-03-26 07:32 | NUR ---
ASSUMED CARE: PT ARRIVED FROM ED WITH AT BEDSIDE. SHE APPEARS TO BE ASLEEP, SNORING. GRIMACING WITH ACTIVITY IN BED. NSR ON TELE AT THIS TIME. NOT VERBALIZING AT THIS TIME. CYLINDER MACHINE OPERATOR IN ROOM GETTING HISTORY FROM
[2020-03-26] MEDS ORDERED: FURO20 PO (07:38)
--- NOTE | 2020-03-26 09:12 | NUR ---
ENTERED ROOM AND PT OPENED EYES, WAS ABLE TO TAKE ORAL LACTULOSE WITHOUT ISSUE. AWARE OF NAME AND WELL FAMILY AT BEDSIDE. BED ALARM. NO FURTHER NEEDS AT THIS TIME.
[2020-03-26 11:42] LABS: Source, Urine Clean Catch
[2020-03-26 11:58] LABS: Bilirubin, Urine Neg (Neg); Blood, Urine 5+ (Neg); Glucose Qualitative, Urine Neg (Neg); Ketones, Urine 1+ (Neg); Leukocyte Esterase, Urine 3+ (Neg); Nitrite, Urine Pos (Neg); Protein, Urine 3+ (Neg); Specific Gravity, Urine 1.015 (1.003-1.022); Urobilinogen, Urine 1+ (Normal); pH, Urine 6.5 (5.0-8.0)
[2020-03-26 12:04] LABS: Appearance, Urine Turbid (Clear); Color, Urine Brown (P-Yellow)
[2020-03-26 12:08] LABS: Bacteria Many /hpf; Red Blood Cells, Urine TNTC /hpf (0-2)
[2020-03-26 12:09] LABS: Squamous Epithelial Cells Mod /hpf (Few)
--- NOTE | 2020-03-26 13:50 | NUR ---
PT'S CALLED RN TO BEDSIDE AND STATED PT WAS HAVING A SEIZURE. PT WAS TWITCHING AND ROUSED SHORTLY AFTER ATIVAN WAS GIVEN. REQUESTED TO NOT TAKE DOSE OF LIBRIUM AT THIS TIME DUE TO JUST RECEIVING ATIVAN. ABLE TO TAKE ORAL MEDICATIONS THEN FELL ASLEEP. SEEMS TO BE RESTING QUIETLY AT THIS TIME. SPOUSE AT BEDSIDE
--- NOTE | 2020-03-26 17:29 | NUR ---
SHIFT SUMMARY: PT'S CIWA HAS NOT EXCEEDED 6 THIS SHIFT. SHE HAD WHAT CALLS A MINOR SEIZURE WHERE SHE WAS TWITCHING WHILE SHE APPEARED TO BE SLEEPING. MEDICATED WITH 2MG ATIVAN DURING THIS EPISODE. PT HAS BEEN SLEEPING MAJORITY OF DAY BUT EASILY ROUSEABLE AND ABLE TO AMBULATE TO RESROOM. AT BEDSIDE THIS SHIFT. NO FURTHER NEEDS OR CONCERNS AT THIS TIME.
[2020-03-27 04:10] LABS: BASOPHILS ABSOLUTE AUTO 0.03 K/mm3 (0.00-0.23); BASOPHILS PERCENT AUTO 1 % (0-2); EOSINOPHILS ABSOLUTE AUTO 0.12 K/mm3 (0.00-0.68); EOSINOPHILS PERCENT AUTO 3 % (0-6); Hematocrit 32.6 % (33.0-51.0); Hemoglobin 11.4 g/dL (11.5-16.0); IMMATURE GRAN ABSOLUTE AUTO 0.01 K/mm3 (0.00-0.10); IMMATURE GRAN PERCENT AUTO 0 % (0-1); LYMPHOCYTES ABSOLUTE AUTO 1.65 K/mm3 (0.84-5.20); LYMPHOCYTES PERCENT AUTO 39 % (21-46); MONOCYTES ABSOLUTE AUTO 0.26 K/mm3 (0.16-1.47); MONOCYTES PERCENT AUTO 6 % (4-13); Mean Corpuscular HGB 32.3 pg (26.0-34.0); Mean Corpuscular Volume 92 fL (80-100); Mean Platelet Volume 10.5 fL (9.1-12.4); NEUTROPHILS PERCENT AUTO 52 % (41-73); Platelet Count 84 K/mm3 (150-400); RDW Coefficient Variation 13.7 % (11.7-14.2); RDW Standard Deviation 45.9 fL (35.1-46.3); Red Blood Cell Count 3.53 M/mm3 (3.80-5.20); White Blood Cell Count 4.27 K/mm3 (4.00-11.30)
[2020-03-27 04:21] LABS: International Normalized Ratio 1.25; Prothrombin Time Results 13.2 Sec (9.7-11.5)
[2020-03-27 04:25] LABS: Alanine Aminotransfer (ALT/SGP 53 U/L (12-78); Albumin, Blood 2.6 g/dL (3.4-5.0); Albumin/Globulin Ratio 0.8 (0.8-1.8); Alk Phos 104 U/L (50-136); Anion Gap 6 mmol/L (6-16); Aspartate Aminotrans (AST/SGOT 126 U/L (12-37); Bilirubin, Total 1.6 mg/dL (0.1-1.0); Blood Urea Nitrogen 4 mg/dL (8-24); Bun/Creatinine Ratio 6.5 (12.0-20.0); CO2, Blood 24 mmol/L (21-32); Chloride, Blood 115 mmol/L (98-108); Creatinine, Blood 0.61 mg/dL (0.40-1.00); Globulin, Blood 3.3 g/dL (2.2-4.0); Glomerular Filtration Rate >60 (60-); Glucose, Blood 91 mg/dL (70-99); Potassium, Blood 3.5 mmol/L (3.5-5.5); Sodium, Blood 145 mmol/L (136-145); Total Protein, Blood 5.9 g/dL (6.4-8.2)
--- NOTE | 2020-03-27 05:33 | NUR ---
PT RESTED COMFORTABLY THROUGHOUT NIGHT. LETHARGIC, BUT EASILY AROUSABLE. NO TELE ORDERS ROOM AIR CIWA 7, 5, 4 VOIDING WITH STAND BY ASSIST NO BM FAMILY AT BEDSIDE CALL LIGHT WITHIN REACH, BED IN LOWEST POSITION. WILL CONTINUE TO MONITOR.
--- NOTE | 2020-03-27 07:13 | NUR ---
ASSUMED CARE: PT RESTING QUIETLY AT THIS TIME. AT BEDSIDE. NO ACUTE NEEDS OR CONCERNS NOTED.
[2020-03-27] MEDS ORDERED: Hair, Skin & N1 EACH PO (11:41)
[2020-03-27] MEDS ORDERED: FOLI1 PO (11:41)
[2020-03-27] MEDS ORDERED: B-1100 M1 PO (11:42)
[2020-03-27] MEDS ORDERED: CEFD300 PO (11:42)
--- NOTE | 2020-03-27 12:27 | NUR ---
DR MEZA CAME TO SEE PT AND INSTRUCTED ON DIET AND FLUID RESTRICTION FOR LIVER DISEASE. THIS RN SPOKE WITH PT AND ABOUT STRATEGIES TO AVOID DRINKING, ENCOURAGING A DISCUSSION WITH HER PCP ABOUT REPELLANT MEDICATIONS AND COUNSELING OPTIONS. IV DC'D WNL, PT AMBULATORY UPON DISCHARGE AND ESCORTED OUT BY BIT WELDER. DENIED FURTHER NEEDS OR CONCERNS.
== END 2020-03-27 12:32 | disposition home or self-care (01) ==
LOC: ER 02:17 → PCU 02:18 → ER 06:20 → PCU 06:20
PROVIDERS: Emergency Medicine; ADMIT Internal Medicine
DX: G92 Toxic encephalopathy (principal); K70.40 Alcoholic hepatic failure without coma; K70.30 Alcoholic cirrhosis of liver without ascites; E87.1 Hypo-osmolality and hyponatremia; K70.10 Alcoholic hepatitis without ascites; F10.229 Alcohol dependence with intoxication, unspecified; E72.20 Disorder of urea cycle metabolism, unspecified; Z88.5 Allergy status to narcotic agent; Z79.899 Other long term (current) drug therapy
CPT/HCPCS: 36415; 80053; 81001; 82140; 84484; 85025; 85610; 87077; 87086; 87186; 93005; 93010; 96361; 96365; 96374; 96375; 96376; 99285-25; G0378; G0480; J0696; J1885; J2060; J2405; J3411; J3475; J7030; J7042; J7050

== ENCOUNTER 2020-03-27 21:36 | Emergency (ER) | payer OTHER ==
[~2020-03-27] VITALS: Ht 162.6 cm; Wt 65.8 kg
[~2020-03-27 21:36] MED LIST changes: +B-1100 M1 PO; +CEFD300 PO; +FOLI1 PO; +FURO20 PO; +Hair, Skin & N1 EACH PO
== END 2020-03-27 21:51 | disposition left against medical advice (07) ==
LOC: ER 21:36
DX: Z53.21 Procedure and treatment not carried out due to patient leaving prior to being seen by health care provider (principal)

== ENCOUNTER 2020-04-06 22:57 | Observation (INO) | payer OTHER ==
[~2020-04-06] VITALS: Ht 152.4 cm; Wt 59.0 kg
[2020-04-06] MEDS ORDERED: CHLO25 PO (23:12)
[2020-04-06 23:43] LABS: Source, Urine Catheter
[2020-04-06 23:54] LABS: Appearance, Urine Hazy (Clear); Bilirubin, Urine Neg (Neg); Blood, Urine 4+ (Neg); Color, Urine Yellow (P-Yellow); Glucose Qualitative, Urine Neg (Neg); Ketones, Urine Neg (Neg); Leukocyte Esterase, Urine 2+ (Neg); Nitrite, Urine Pos (Neg); Protein, Urine 4+ (Neg); Specific Gravity, Urine 1.015 (1.003-1.022); Urobilinogen, Urine 2+ (Normal)
[2020-04-06 23:59] LABS: BASOPHILS ABSOLUTE AUTO 0.04 K/mm3 (0.00-0.23); BASOPHILS PERCENT AUTO 0 % (0-2); EOSINOPHILS PERCENT AUTO 1 % (0-6); Hematocrit 45.6 % (33.0-51.0); Hemoglobin 15.3 g/dL (11.5-16.0); IMMATURE GRAN ABSOLUTE AUTO 0.03 K/mm3 (0.00-0.10); IMMATURE GRAN PERCENT AUTO 0 % (0-1); LYMPHOCYTES PERCENT AUTO 29 % (21-46); MONOCYTES ABSOLUTE AUTO 0.38 K/mm3 (0.16-1.47); MONOCYTES PERCENT AUTO 4 % (4-13); Mean Corpuscular HGB 31.8 pg (26.0-34.0); Mean Corpuscular HGB Conc 33.6 g/dL (31.5-36.5); Mean Corpuscular Volume 95 fL (80-100); Mean Platelet Volume 10.5 fL (9.1-12.4); NEUTROPHILS ABSOLUTE AUTO 5.93 K/mm3 (1.96-9.15); NEUTROPHILS PERCENT AUTO 65 % (41-73); Platelet Count 98 K/mm3 (150-400); RDW Coefficient Variation 15.8 % (11.7-14.2); RDW Standard Deviation 54.9 fL (35.1-46.3); Red Blood Cell Count 4.81 M/mm3 (3.80-5.20); White Blood Cell Count 9.08 K/mm3 (4.00-11.30)
[2020-04-07 00:23] LABS: U Amphetamine Screen Not Detected; U Barbituate Screen Not Detected; U Benzodiazapine Screen DETECTED; U Buprenorphine Screen Not Detected; U Cannabinoids Screen Not Detected; U Cocaine Screen Not Detected; U Methadone Screen Not Detected; U Methamphetamine Screen Not Detected; U Opiates Screen Not Detected; U Oxycodone Screen Not Detected; U Phencyclidine Screen Not Detected; U Propoxyphene Screen Not Detected
[2020-04-07 00:54] LABS: Ethanol (Alcohol), Blood, Med 355 mg/dL
[2020-04-07 00:58] LABS: Acetaminophen, Random <2.0 ug/mL (10.0-30.0)
[2020-04-07 00:59] LABS: Alanine Aminotransfer (ALT/SGP 133 U/L (12-78); Albumin, Blood 3.5 g/dL (3.4-5.0); Albumin/Globulin Ratio 0.9 (0.8-1.8); Alk Phos 172 U/L (50-136); Anion Gap 10 mmol/L (6-16); Aspartate Aminotrans (AST/SGOT 267 U/L (12-37); Bilirubin, Total 1.4 mg/dL (0.1-1.0); Blood Urea Nitrogen 6 mg/dL (8-24); Bun/Creatinine Ratio 12.3 (12.0-20.0); CO2, Blood 25 mmol/L (21-32); Chloride, Blood 115 mmol/L (98-108); Creatinine, Blood 0.49 mg/dL (0.40-1.00); Globulin, Blood 3.9 g/dL (2.2-4.0); Glomerular Filtration Rate >60 (60-); Glucose, Blood 86 mg/dL (70-99); Potassium, Blood 3.6 mmol/L (3.5-5.5); Salicylate <1.7 mg/dL (2.8-20.0); Sodium, Blood 150 mmol/L (136-145); Total Protein, Blood 7.4 g/dL (6.4-8.2)
[2020-04-07 01:12] LABS: International Normalized Ratio 1.31; Prothrombin Time Results 13.8 Sec (9.7-11.5)
[2020-04-07 01:15] LABS: Red Blood Cells, Urine Not Seen /hpf (0-2); Squamous Epithelial Cells Few /hpf (Few); White Blood Cells, Urine 25-50 /hpf (0-5)
[2020-04-07 01:16] LABS: Bacteria Many /hpf
[2020-04-07 05:50] LABS: BASOPHILS ABSOLUTE AUTO 0.03 K/mm3 (0.00-0.23); BASOPHILS PERCENT AUTO 1 % (0-2); EOSINOPHILS ABSOLUTE AUTO 0.11 K/mm3 (0.00-0.68); EOSINOPHILS PERCENT AUTO 2 % (0-6); Hematocrit 36.6 % (33.0-51.0); Hemoglobin 12.3 g/dL (11.5-16.0); IMMATURE GRAN ABSOLUTE AUTO 0.01 K/mm3 (0.00-0.10); IMMATURE GRAN PERCENT AUTO 0 % (0-1); LYMPHOCYTES ABSOLUTE AUTO 2.76 K/mm3 (0.84-5.20); LYMPHOCYTES PERCENT AUTO 42 % (21-46); MONOCYTES ABSOLUTE AUTO 0.32 K/mm3 (0.16-1.47); MONOCYTES PERCENT AUTO 5 % (4-13); Mean Corpuscular HGB Conc 33.6 g/dL (31.5-36.5); Mean Corpuscular Volume 95 fL (80-100); NEUTROPHILS ABSOLUTE AUTO 3.33 K/mm3 (1.96-9.15); NEUTROPHILS PERCENT AUTO 51 % (41-73); RDW Coefficient Variation 15.6 % (11.7-14.2); RDW Standard Deviation 54.4 fL (35.1-46.3); Red Blood Cell Count 3.84 M/mm3 (3.80-5.20); White Blood Cell Count 6.56 K/mm3 (4.00-11.30)
[2020-04-07 05:58] LABS: Mean Platelet Volume 11.3 fL (9.1-12.4); Platelet Count 69 K/mm3 (150-400)
[2020-04-07 06:08] LABS: Alanine Aminotransfer (ALT/SGP 107 U/L (12-78); Albumin, Blood 2.7 g/dL (3.4-5.0); Albumin/Globulin Ratio 0.8 (0.8-1.8); Alk Phos 128 U/L (50-136); Anion Gap 7 mmol/L (6-16); Aspartate Aminotrans (AST/SGOT 218 U/L (12-37); Bilirubin, Total 1.1 mg/dL (0.1-1.0); Blood Urea Nitrogen 7 mg/dL (8-24); Bun/Creatinine Ratio 18.9 (12.0-20.0); CO2, Blood 25 mmol/L (21-32); Calcium, Blood 7.4 mg/dL (8.5-10.1); Chloride, Blood 118 mmol/L (98-108); Creatinine, Blood 0.37 mg/dL (0.40-1.00); Globulin, Blood 3.3 g/dL (2.2-4.0); Glomerular Filtration Rate >60 (60-); Glucose, Blood 102 mg/dL (70-99); Potassium, Blood 3.7 mmol/L (3.5-5.5); Sodium, Blood 150 mmol/L (136-145)
[2020-04-07] MEDS ORDERED: IBUP400 PO (16:43)
== END 2020-04-07 17:40 | disposition home or self-care (01) ==
LOC: ER 22:57 → ICUW 22:58 → ICUE 04-07 00:46 → ER 04-07 00:46 → ICUW 04-07 00:49 → ICUE 04-07 00:49
PROVIDERS: Emergency Medicine; ADMIT Internal Medicine
DX: G40.509 Epileptic seizures related to external causes, not intractable, without status epilepticus (principal); F10.239 Alcohol dependence with withdrawal, unspecified; Z79.899 Other long term (current) drug therapy; K70.30 Alcoholic cirrhosis of liver without ascites; Z88.5 Allergy status to narcotic agent; F17.210 Nicotine dependence, cigarettes, uncomplicated; Z91.14 Patient's other noncompliance with medication regimen; E86.0 Dehydration; Y90.8 Blood alcohol level of 240 mg/100 ml or more
CPT/HCPCS: 36415; 70450; 80053; 81001; 81025; 82140; 85025; 85610; 87077; 87086; 87186; 96361; 96374; 99285-25; G0480; J0696; J1953; J2060; J3411; J3475; J7030; J7042

== ENCOUNTER 2020-05-28 16:01 | Emergency (ER) | payer OTHER ==
[~2020-05-28] VITALS: Ht 152.4 cm; Wt 55.3 kg
[~2020-05-28 16:01] MED LIST changes: +CHLO25 PO; +IBUP400 PO
[2020-05-28 16:50] LABS: BASOPHILS ABSOLUTE AUTO 0.05 K/mm3 (0.00-0.23); BASOPHILS PERCENT AUTO 1 % (0-2); EOSINOPHILS ABSOLUTE AUTO 0.03 K/mm3 (0.00-0.68); EOSINOPHILS PERCENT AUTO 1 % (0-6); Hematocrit 36.2 % (33.0-51.0); Hemoglobin 12.2 g/dL (11.5-16.0); IMMATURE GRAN ABSOLUTE AUTO 0.02 K/mm3 (0.00-0.10); IMMATURE GRAN PERCENT AUTO 0 % (0-1); LYMPHOCYTES ABSOLUTE AUTO 1.61 K/mm3 (0.84-5.20); LYMPHOCYTES PERCENT AUTO 32 % (21-46); MONOCYTES ABSOLUTE AUTO 0.23 K/mm3 (0.16-1.47); MONOCYTES PERCENT AUTO 5 % (4-13); Mean Corpuscular HGB 33.5 pg (26.0-34.0); Mean Corpuscular HGB Conc 33.7 g/dL (31.5-36.5); Mean Corpuscular Volume 100 fL (80-100); Mean Platelet Volume 11.1 fL (9.1-12.4); NEUTROPHILS PERCENT AUTO 62 % (41-73); Platelet Count 54 K/mm3 (150-400); RDW Coefficient Variation 15.5 % (11.7-14.2); RDW Standard Deviation 57.2 fL (35.1-46.3); Red Blood Cell Count 3.64 M/mm3 (3.80-5.20); White Blood Cell Count 5.04 K/mm3 (4.00-11.30)
[2020-05-28 17:02] LABS: International Normalized Ratio 1.61; Prothrombin Time Results 16.8 Sec (9.7-11.5)
[2020-05-28 17:12] LABS: Alanine Aminotransfer (ALT/SGP 90 U/L (12-78); Albumin, Blood 2.3 g/dL (3.4-5.0); Albumin/Globulin Ratio 0.6 (0.8-1.8); Alk Phos 181 U/L (50-136); Anion Gap 8 mmol/L (6-16); Aspartate Aminotrans (AST/SGOT 277 U/L (12-37); Bilirubin, Total 3.7 mg/dL (0.1-1.0); Blood Urea Nitrogen 4 mg/dL (8-24); Bun/Creatinine Ratio 9.6 (12.0-20.0); CO2, Blood 27 mmol/L (21-32); Calcium, Blood 7.6 mg/dL (8.5-10.1); Chloride, Blood 114 mmol/L (98-108); Creatinine, Blood 0.42 mg/dL (0.40-1.00); Ethanol (Alcohol), Blood, Med 297 mg/dL; Globulin, Blood 3.8 g/dL (2.2-4.0); Glomerular Filtration Rate >60 (60-); Glucose, Blood 123 mg/dL (70-99); Magnesium, Blood 1.5 mg/dL (1.6-2.4); Potassium, Blood 2.8 mmol/L (3.5-5.5); Sodium, Blood 149 mmol/L (136-145); Total Protein, Blood 6.1 g/dL (6.4-8.2)
[2020-05-28 18:38] LABS: Source, Urine Clean Catch
[2020-05-28 18:52] LABS: Appearance, Urine Clear (Clear); Bilirubin, Urine Neg (Neg); Blood, Urine Neg (Neg); Color, Urine Yellow (P-Yellow); Glucose Qualitative, Urine Neg (Neg); Ketones, Urine Neg (Neg); Leukocyte Esterase, Urine Neg (Neg); Nitrite, Urine Neg (Neg); Protein, Urine Neg (Neg); Specific Gravity, Urine 1.005 (1.003-1.022); Urobilinogen, Urine NORM (Normal); pH, Urine 6.5 (5.0-8.0)
== END 2020-05-28 19:14 | disposition home or self-care (01) ==
LOC: ER 16:01
PROVIDERS: Physician Assistant
DX: G40.909 Epilepsy, unspecified, not intractable, without status epilepticus (principal); E87.6 Hypokalemia; Z91.14 Patient's other noncompliance with medication regimen; Z79.899 Other long term (current) drug therapy; S40.022A Contusion of left upper arm, initial encounter; S40.021A Contusion of right upper arm, initial encounter; Z88.5 Allergy status to narcotic agent; Y04.8XXA Assault by other bodily force, initial encounter
CPT/HCPCS: 73030; 80053; 81003; 81025; 83735; 85025; 85610; 93005; 93010; 96365; 99285-25; A9270; G0480; J1953

== ENCOUNTER 2020-06-14 15:53 | Emergency (ER) | payer OTHER ==
[~2020-06-14] VITALS: Ht 152.4 cm; Wt 55.3 kg
[2020-06-14 17:05] LABS: BASOPHILS ABSOLUTE AUTO 0.04 K/mm3 (0.00-0.23); BASOPHILS PERCENT AUTO 1 % (0-2); EOSINOPHILS ABSOLUTE AUTO 0.08 K/mm3 (0.00-0.68); EOSINOPHILS PERCENT AUTO 2 % (0-6); Hematocrit 41.6 % (33.0-51.0); Hemoglobin 13.7 g/dL (11.5-16.0); IMMATURE GRAN ABSOLUTE AUTO 0.01 K/mm3 (0.00-0.10); IMMATURE GRAN PERCENT AUTO 0 % (0-1); LYMPHOCYTES ABSOLUTE AUTO 1.32 K/mm3 (0.84-5.20); LYMPHOCYTES PERCENT AUTO 30 % (21-46); MONOCYTES ABSOLUTE AUTO 0.22 K/mm3 (0.16-1.47); MONOCYTES PERCENT AUTO 5 % (4-13); Mean Corpuscular HGB 33.7 pg (26.0-34.0); Mean Corpuscular HGB Conc 32.9 g/dL (31.5-36.5); Mean Corpuscular Volume 102 fL (80-100); Mean Platelet Volume 11.8 fL (9.1-12.4); NEUTROPHILS ABSOLUTE AUTO 2.73 K/mm3 (1.96-9.15); NEUTROPHILS PERCENT AUTO 62 % (41-73); Platelet Count 51 K/mm3 (150-400); RDW Coefficient Variation 13.4 % (11.7-14.2); RDW Standard Deviation 50.9 fL (35.1-46.3); Red Blood Cell Count 4.07 M/mm3 (3.80-5.20)
[2020-06-14 17:27] LABS: Alanine Aminotransfer (ALT/SGP 78 U/L (12-78); Albumin, Blood 2.3 g/dL (3.4-5.0); Albumin/Globulin Ratio 0.5 (0.8-1.8); Alk Phos 171 U/L (50-136); Anion Gap 6 mmol/L (6-16); Aspartate Aminotrans (AST/SGOT 271 U/L (12-37); Bilirubin, Total 4.6 mg/dL (0.1-1.0); Blood Urea Nitrogen 4 mg/dL (8-24); CO2, Blood 29 mmol/L (21-32); Calcium, Blood 7.9 mg/dL (8.5-10.1); Chloride, Blood 112 mmol/L (98-108); Creatinine, Blood 0.44 mg/dL (0.40-1.00); Globulin, Blood 4.9 g/dL (2.2-4.0); Glomerular Filtration Rate >60 (60-); Glucose, Blood 89 mg/dL (70-99); Potassium, Blood 3.7 mmol/L (3.5-5.5); Sodium, Blood 147 mmol/L (136-145); Total Protein, Blood 7.2 g/dL (6.4-8.2)
[2020-06-14 20:04] LABS: Source, Urine Clean Catch
[2020-06-14 20:07] LABS: Appearance, Urine Clear (Clear); Blood, Urine 4+ (Neg); Color, Urine Amber (P-Yellow); Glucose Qualitative, Urine Neg (Neg); Ketones, Urine 1+ (Neg); Leukocyte Esterase, Urine 1+ (Neg); Nitrite, Urine Pos (Neg); Protein, Urine 3+ (Neg); Urobilinogen, Urine 4+ (Normal)
[2020-06-14 20:11] LABS: Bilirubin, Urine 3+ (Neg)
[2020-06-14 20:15] LABS: Red Blood Cells, Urine 0-2 /hpf (0-2)
[2020-06-14 20:16] LABS: Bacteria Many /hpf; Mucus Mod (0-Heavy); Squamous Epithelial Cells Few /hpf (Few)
[2020-06-15] MEDS ORDERED: Cleocin HCl300 MG PO (00:49)
== END 2020-06-15 01:30 | disposition home or self-care (01) ==
LOC: ER 15:53
PROVIDERS: Physician Assistant
DX: F10.239 Alcohol dependence with withdrawal, unspecified (principal); S30.860A Insect bite (nonvenomous) of lower back and pelvis, initial encounter; G40.909 Epilepsy, unspecified, not intractable, without status epilepticus; F17.210 Nicotine dependence, cigarettes, uncomplicated; Z79.899 Other long term (current) drug therapy; W57.XXXA Bitten or stung by nonvenomous insect and other nonvenomous arthropods, initial encounter
CPT/HCPCS: 36415; 80053; 81001; 81025; 83690; 85025; 87086; 87147; 96374; 96375; 99285-25; A9270-GY; J2060; J2405; J7030

== ENCOUNTER 2020-07-04 23:03 | Emergency (ER) | payer OTHER ==
[~2020-07-04] VITALS: Ht 152.4 cm; Wt 55.3 kg
[~2020-07-04 23:03] MED LIST changes: +Cleocin HCl300 MG PO
[2020-07-05] MEDS ORDERED: Roxicodone5 MG PO (01:35)
[2020-07-05] MEDS ORDERED: IBU600 MG PO (01:35)
[2020-07-05] MEDS ORDERED: CHLO25 PO (01:35)
== END 2020-07-05 02:07 | disposition home or self-care (01) ==
LOC: ER 23:03
DX: S40.011A Contusion of right shoulder, initial encounter (principal); S40.021A Contusion of right upper arm, initial encounter; S30.0XXA Contusion of lower back and pelvis, initial encounter; S70.11XA Contusion of right thigh, initial encounter; S20.211A Contusion of right front wall of thorax, initial encounter; K74.60 Unspecified cirrhosis of liver; F10.20 Alcohol dependence, uncomplicated; F17.210 Nicotine dependence, cigarettes, uncomplicated; Z88.5 Allergy status to narcotic agent; W18.2XXA Fall in (into) shower or empty bathtub, initial encounter; Y92.002 Bathroom of unspecified non-institutional (private) residence as the place of occurrence of the external cause
CPT/HCPCS: 70450; 71045; 73030; 73502; 73562-RT; 99284-25; A9270

== ENCOUNTER 2020-07-09 00:09 | Inpatient (IN) | payer OTHER ==
[~2020-07-09] VITALS: Ht 152.4 cm; Wt 67.4 kg
[~2020-07-09 00:09] MED LIST changes: +IBU600 MG PO; +Roxicodone5 MG PO
[2020-07-09 01:26] LABS: BASOPHILS ABSOLUTE AUTO 0.06 K/mm3 (0.00-0.23); BASOPHILS PERCENT AUTO 1 % (0-2); EOSINOPHILS ABSOLUTE AUTO 0.24 K/mm3 (0.00-0.68); EOSINOPHILS PERCENT AUTO 3 % (0-6); Hematocrit 29.9 % (33.0-51.0); Hemoglobin 9.9 g/dL (11.5-16.0); IMMATURE GRAN ABSOLUTE AUTO 0.02 K/mm3 (0.00-0.10); IMMATURE GRAN PERCENT AUTO 0 % (0-1); LYMPHOCYTES PERCENT AUTO 34 % (21-46); MONOCYTES ABSOLUTE AUTO 0.45 K/mm3 (0.16-1.47); MONOCYTES PERCENT AUTO 6 % (4-13); Mean Corpuscular HGB 34.6 pg (26.0-34.0); Mean Corpuscular HGB Conc 33.1 g/dL (31.5-36.5); Mean Corpuscular Volume 105 fL (80-100); Mean Platelet Volume 10.6 fL (9.1-12.4); NEUTROPHILS ABSOLUTE AUTO 4.67 K/mm3 (1.96-9.15); NEUTROPHILS PERCENT AUTO 57 % (41-73); Platelet Count 142 K/mm3 (150-400); Red Blood Cell Count 2.86 M/mm3 (3.80-5.20); White Blood Cell Count 8.24 K/mm3 (4.00-11.30)
[2020-07-09 01:38] LABS: Alanine Aminotransfer (ALT/SGP 117 U/L (12-78); Albumin, Blood 2.3 g/dL (3.4-5.0); Albumin/Globulin Ratio 0.6 (0.8-1.8); Alk Phos 121 U/L (50-136); Anion Gap 6 mmol/L (6-16); Aspartate Aminotrans (AST/SGOT 375 U/L (12-37); Bilirubin, Total 2.8 mg/dL (0.1-1.0); Blood Urea Nitrogen 15 mg/dL (8-24); Bun/Creatinine Ratio 21.7 (12.0-20.0); CO2, Blood 29 mmol/L (21-32); Calcium, Blood 7.5 mg/dL (8.5-10.1); Chloride, Blood 109 mmol/L (98-108); Creatinine, Blood 0.69 mg/dL (0.40-1.00); Globulin, Blood 3.7 g/dL (2.2-4.0); Glomerular Filtration Rate >60 (60-); Glucose, Blood 143 mg/dL (70-99); Potassium, Blood 3.1 mmol/L (3.5-5.5); Sodium, Blood 144 mmol/L (136-145)
[2020-07-09 01:46] LABS: Ethanol (Alcohol), Blood, Med 296 mg/dL; Magnesium, Blood 2.1 mg/dL (1.6-2.4)
[2020-07-09 02:01] LABS: International Normalized Ratio 1.41; Prothrombin Time Results 14.8 Sec (9.7-11.5)
[2020-07-09 03:17] LABS: BASOPHILS ABSOLUTE AUTO 0.05 K/mm3 (0.00-0.23); BASOPHILS PERCENT AUTO 1 % (0-2); EOSINOPHILS ABSOLUTE AUTO 0.18 K/mm3 (0.00-0.68); EOSINOPHILS PERCENT AUTO 3 % (0-6); Hematocrit 25.1 % (33.0-51.0); Hemoglobin 8.4 g/dL (11.5-16.0); IMMATURE GRAN ABSOLUTE AUTO 0.02 K/mm3 (0.00-0.10); IMMATURE GRAN PERCENT AUTO 0 % (0-1); LYMPHOCYTES ABSOLUTE AUTO 2.71 K/mm3 (0.84-5.20); LYMPHOCYTES PERCENT AUTO 38 % (21-46); MONOCYTES ABSOLUTE AUTO 0.56 K/mm3 (0.16-1.47); MONOCYTES PERCENT AUTO 8 % (4-13); Mean Corpuscular HGB 34.9 pg (26.0-34.0); Mean Corpuscular HGB Conc 33.5 g/dL (31.5-36.5); Mean Corpuscular Volume 104 fL (80-100); Mean Platelet Volume 10.5 fL (9.1-12.4); NEUTROPHILS PERCENT AUTO 51 % (41-73); NRBC ABSOLUTE 0.02 K/mm3 (0.00-0.02); NRBC Auto 0.3 /100 WBC (0.0-0.2); Platelet Count 94 K/mm3 (150-400); RDW Coefficient Variation 13.9 % (11.7-14.2); RDW Standard Deviation 51.7 fL (35.1-46.3); Red Blood Cell Count 2.41 M/mm3 (3.80-5.20); White Blood Cell Count 7.22 K/mm3 (4.00-11.30)
[2020-07-09 06:01] LABS: Creatine Kinase MB 2.4 ng/mL (0.0-3.6); Creatine Kinase MB Index 0.1 (0.0-4.0)
[2020-07-09] MEDS ORDERED: LEVE500 PO (06:50)
[2020-07-09] MEDS ORDERED: CHLO25 PO (06:51)
[2020-07-09 16:41] LABS: Hematocrit 22.1 % (33.0-51.0); Hemoglobin 7.4 g/dL (11.5-16.0); Mean Corpuscular HGB 35.2 pg (26.0-34.0); Mean Corpuscular HGB Conc 33.5 g/dL (31.5-36.5); Mean Corpuscular Volume 105 fL (80-100); Mean Platelet Volume 10.6 fL (9.1-12.4); Platelet Count 62 K/mm3 (150-400); RDW Coefficient Variation 14.5 % (11.7-14.2); RDW Standard Deviation 52.5 fL (35.1-46.3); White Blood Cell Count 3.14 K/mm3 (4.00-11.30)
[2020-07-09 18:10] LABS: Percent Saturation 25.5 % (15.0-50.0)
--- NOTE | 2020-07-09 18:49 | NUR ---
NO ACUTE EVENTS THIS SHIFT. PATIENT ORIENTED THIS SHIFT, PATIENT WAS SLEEPY BUT RESPONSIVE TO VERBAL STIMILI THIS MORNING, BECAME MORE AWAKE AND ALERT THROUGH SHIFT. PATIENT COMPLAINED OF 10/10 PAIN IN LEFT SHOULD, L UPPER EXTREMITY, AND LLE, SOME RELIEF WITH FENTANYL ADMIN AND DR. COURTNEY NOTIFIED . PATIENT MEDICATED PER [facility]. PATIENT HAD INTERMITTENT NAUSEA, VOMITED AT END OF SHIFT, NEW ORDER FOR REGLAN FROM DR. COURTNEY GIVEN.
[2020-07-09 19:10] LABS: Hematocrit 23.2 % (33.0-51.0); Hemoglobin 7.4 g/dL (11.5-16.0); Mean Corpuscular HGB 34.3 pg (26.0-34.0); Mean Corpuscular HGB Conc 31.9 g/dL (31.5-36.5); Mean Corpuscular Volume 107 fL (80-100); Mean Platelet Volume 10.4 fL (9.1-12.4); Platelet Count 64 K/mm3 (150-400); RDW Coefficient Variation 14.6 % (11.7-14.2); RDW Standard Deviation 53.9 fL (35.1-46.3); Red Blood Cell Count 2.16 M/mm3 (3.80-5.20); White Blood Cell Count 3.46 K/mm3 (4.00-11.30)
--- NOTE | 2020-07-10 00:45 | NUR ---
FAMILY CALLED FOR UPDATE SERGE CALLED ASKING FOR AN UPDATE ON PT. I SPOKE WITH PT AND PT STATED I COULD UPDATE SERGE. PT REQUESTED I NOT DISCUSS ETOH USE WITH SERGE. I SPOKE WITH SERGE AND UPDATED HIM ON CONDITION AND PLAN FOR PT. SERGE CONTINUOUSLY ASKED IF PT WAS USING ETOH, IF HER CONDITION WAS CAUSED FROM ETOH, AND WAYS TO GET HER TO STOP USING ETOH. HE WAS AWEAR OF HER ETOH HX. I TOLD HIM I WAS UNABLE TO DISCUSS THIS MATTER WITH HIM.
[2020-07-10 03:37] LABS: BASOPHILS ABSOLUTE AUTO 0.01 K/mm3 (0.00-0.23); BASOPHILS PERCENT AUTO 0 % (0-2); EOSINOPHILS ABSOLUTE AUTO 0.11 K/mm3 (0.00-0.68); EOSINOPHILS PERCENT AUTO 4 % (0-6); Hematocrit 21.5 % (33.0-51.0); Hemoglobin 7.2 g/dL (11.5-16.0); IMMATURE GRAN ABSOLUTE AUTO 0.01 K/mm3 (0.00-0.10); IMMATURE GRAN PERCENT AUTO 0 % (0-1); LYMPHOCYTES ABSOLUTE AUTO 1.28 K/mm3 (0.84-5.20); LYMPHOCYTES PERCENT AUTO 41 % (21-46); MONOCYTES ABSOLUTE AUTO 0.26 K/mm3 (0.16-1.47); MONOCYTES PERCENT AUTO 8 % (4-13); Mean Corpuscular HGB 35.3 pg (26.0-34.0); Mean Corpuscular HGB Conc 33.5 g/dL (31.5-36.5); Mean Corpuscular Volume 105 fL (80-100); Mean Platelet Volume 10.7 fL (9.1-12.4); NEUTROPHILS ABSOLUTE AUTO 1.48 K/mm3 (1.96-9.15); NEUTROPHILS PERCENT AUTO 47 % (41-73); Platelet Count 59 K/mm3 (150-400); RDW Coefficient Variation 14.8 % (11.7-14.2); RDW Standard Deviation 53.8 fL (35.1-46.3); Red Blood Cell Count 2.04 M/mm3 (3.80-5.20); White Blood Cell Count 3.15 K/mm3 (4.00-11.30)
[2020-07-10 04:04] LABS: Alanine Aminotransfer (ALT/SGP 62 U/L (12-78); Albumin, Blood 1.9 g/dL (3.4-5.0); Albumin/Globulin Ratio 0.8 (0.8-1.8); Alk Phos 87 U/L (50-136); Anion Gap 4 mmol/L (6-16); Aspartate Aminotrans (AST/SGOT 188 U/L (12-37); Bilirubin, Total 2.6 mg/dL (0.1-1.0); Blood Urea Nitrogen 14 mg/dL (8-24); Bun/Creatinine Ratio 28.1 (12.0-20.0); CO2, Blood 28 mmol/L (21-32); CPK Creatine Kinase 1648 U/L (26-193); Calcium, Blood 7.2 mg/dL (8.5-10.1); Chloride, Blood 109 mmol/L (98-108); Globulin, Blood 2.4 g/dL (2.2-4.0); Glomerular Filtration Rate >60 (60-); Glucose, Blood 116 mg/dL (70-99); Potassium, Blood 3.6 mmol/L (3.5-5.5); Sodium, Blood 141 mmol/L (136-145); Total Protein, Blood 4.3 g/dL (6.4-8.2)
--- NOTE | 2020-07-10 05:25 | NUR ---
SHIFT SUMMARY PT HAS BEEN LETHARGIC T/O SHIFT. ANSWERS QUESTIONS APPROPRIATELY AND FOLLOWS DIRECTIONS. PT IS ALERT AND ORIENTED X4. PAIN WAS SIGNIFICANT T/O SHIFT, -04/30. THE PAIN WAS INCONSISTENT, I COULD TOUCH HER ARM AND PT WOULD SCREAM IN PAIN, SHORTLY AFTER I COULD TOUCH HER ARM AGAIN WITH NO REACTION. SWELLING STILL SIGNIFICANT IN R SIDE, LITTLE CHANGE FROM WHEN I ADMITTED PT. VITALS WERE STABLE WITH BP 105-113 SYSTOLIC, HR 70-80'S, AUDIBLE HEART MURMUR, O2 SATS IN THE 90'S ON ROOM AIR. CIWA SCORES HAVE BEEN 6-9, WITH VERY MILD SYMPTOMS. NO SEIZURES DURING SHIFT, PT STATED AT ONE POINT SHE FELT LIKE SHE WAS GOING TO HAVE A SEIZURE BUT NEVER DID. CONTINUING TO ADMINISTER PRN PAIN MEDICATION PER ORDER. WILL CONTINUE TO MONITOR UNTIL SHIFT CHANGE.
--- NOTE | 2020-07-10 08:58 | NUR ---
ASSUMED CARE OF PT THIS MORNING AFTER RECEIVING REPORT FROM NICHOLAS HURTADO. PT HAS BEEN SLEEPING SO FAR THIS AM, AROUSES TO STAFF ENTERING ROOM, ANSWERS QUESTIONS APPROPRIATELY. NO ACUTE STRESS NOTED, WILL CONTINUE TO MONITOR AND TREAT ACCORDINGLY.
[2020-07-10 12:39] LABS: BASOPHILS ABSOLUTE AUTO 0.02 K/mm3 (0.00-0.23); BASOPHILS PERCENT AUTO 1 % (0-2); EOSINOPHILS ABSOLUTE AUTO 0.12 K/mm3 (0.00-0.68); EOSINOPHILS PERCENT AUTO 4 % (0-6); Hematocrit 23.7 % (33.0-51.0); Hemoglobin 7.9 g/dL (11.5-16.0); IMMATURE GRAN PERCENT AUTO 0 % (0-1); LYMPHOCYTES ABSOLUTE AUTO 0.99 K/mm3 (0.84-5.20); LYMPHOCYTES PERCENT AUTO 36 % (21-46); MONOCYTES ABSOLUTE AUTO 0.19 K/mm3 (0.16-1.47); MONOCYTES PERCENT AUTO 7 % (4-13); Mean Corpuscular HGB 35.1 pg (26.0-34.0); Mean Corpuscular HGB Conc 33.3 g/dL (31.5-36.5); Mean Corpuscular Volume 105 fL (80-100); Mean Platelet Volume 10.3 fL (9.1-12.4); NEUTROPHILS ABSOLUTE AUTO 1.47 K/mm3 (1.96-9.15); NEUTROPHILS PERCENT AUTO 53 % (41-73); Platelet Count 68 K/mm3 (150-400); RDW Coefficient Variation 14.8 % (11.7-14.2); RDW Standard Deviation 53.8 fL (35.1-46.3); Red Blood Cell Count 2.25 M/mm3 (3.80-5.20); White Blood Cell Count 2.79 K/mm3 (4.00-11.30)
--- NOTE | 2020-07-10 16:51 | NUR ---
PT SLEEPY T/OUT THIS AM, BECOMES MORE ALERT T/OUT DAY, IS ORIENTED X4. PT W/OFTEN C/O PAIN TO RT SIDE, RECEIVES FENTANYL REGULARLY. PT ABLE TO STAND AND USE BSC INDEPENDENTLY THIS AFTERNOON. CIWA ASSESSMENT REVEALS STABLE WITHDRAWAL, BUT PRN MEDICATIONS REMAIN IN PLACE. PT TRANSFERED TO MEDICAL DEPT W/OUT TELEMETRY, REPORT GIVEN TO RANDY PETERSON.
--- NOTE | 2020-07-10 18:01 | NUR ---
PT ARRIVED TO THE MEDICAL FLOOR FROM THE PCU VIA BED, PT IS A/OX3 PLEASANT AND COOPERATIVE, THE PT WAS ORIENTED TO THE ROOM LAYOUT AND CALL SYSTEM, THE PTS CWAW SCORE PER THIS RN WAS 8, PT WAS GIVEN LIBRIUM, THE PT APPEARS TO BE BREATHING EASILY ON RA AT THIS TIME, CALL LIGHT IN REACH, WILL CONTINUE TO MONITOR AND ASSESS FOR CHANGES
--- NOTE | 2020-07-11 04:19 | NUR ---
SHIFT SUMMARY PT A/O. PAINFUL WITH MOVEMENT BUT AMBULATES WELL WITH JUST SBA TO THE RESTROOM. BRUISING COVERING NEARLY ALL OF PT'S R SIDE OF BODY. SWELLING TO R SIDE OF BODY. MOST SEVERELY IN R ARM. CIWA SCORES 8-9. MILD HEADACHES, ITCHING, MILD NAUSEA, SLIGHTLY TREMULOUS, AGITATION/ANXIETY CAUSING CIWA SCORE. ATIVAN IV 1 MG GIVEN X 2. PT REPORTING "EXCRUCIATING" PAIN TO R SIDE OF BODY. MEDICATED Q 4 HOURS WITH 50 MCG FENTANYL. VITAL SIGNS STABLE. PT RESTING IN THE BED AT THIS TIME. WILL CONTINUE TO MONITOR.
[2020-07-11 09:17] LABS: Alanine Aminotransfer (ALT/SGP 58 U/L (12-78); Albumin, Blood 2.1 g/dL (3.4-5.0); Albumin/Globulin Ratio 0.8 (0.8-1.8); Alk Phos 84 U/L (50-136); Anion Gap 8 mmol/L (6-16); Aspartate Aminotrans (AST/SGOT 150 U/L (12-37); Blood Urea Nitrogen 11 mg/dL (8-24); Bun/Creatinine Ratio 22.1 (12.0-20.0); CO2, Blood 23 mmol/L (21-32); Calcium, Blood 7.4 mg/dL (8.5-10.1); Chloride, Blood 107 mmol/L (98-108); Globulin, Blood 2.5 g/dL (2.2-4.0); Glomerular Filtration Rate >60 (60-); Glucose, Blood 110 mg/dL (70-99); Potassium, Blood 3.4 mmol/L (3.5-5.5); Sodium, Blood 138 mmol/L (136-145); Total Protein, Blood 4.6 g/dL (6.4-8.2)
[2020-07-11 17:25] LABS: Influenza A, PCR Negative (NEGATIVE); Influenza B, PCR Negative (NEGATIVE); Resp Syncytial Virus, PCR Negative (NEGATIVE); SARS-Cov-2 (COVID-19) PCR, MMC Negative (NEGATIVE)
--- NOTE | 2020-07-11 19:21 | NUR ---
SHIFT SUMMARY FRANCIE STILL HAS SEVERE R SIDE SWELLING AND BRUISING, PAINFUL GETTING IV FENTANYL. EX-BOYFRIEND CAME AND VISITED. CIWAH SCORES 8-13 THIS SHIFT, RECEIVED IV ATIVAN SEVERAL TIMES WITHOUT NOTED SEDATING EFFECT. PT SCORING FOR VISUAL HALLUCINATIONS, SOME TREMORS, NAUSEA, AUDITORY RINGING. GI CAME AND SAW HER, CLEARS FOR BREAKFAST AND NPO AFTER BREAKFAST. PT AWARE. SBA, BED ALARM ON PT DIDN'T CALL APPROPRIATELY. POOR APPETITE. SBA TO BR, CONTINENT. CALL LIGHT IN REACH, REPORT GIVEN TO NIGHT NURSE
[2020-07-12 05:25] LABS: BASOPHILS ABSOLUTE AUTO 0.02 K/mm3 (0.00-0.23); BASOPHILS PERCENT AUTO 1 % (0-2); EOSINOPHILS ABSOLUTE AUTO 0.13 K/mm3 (0.00-0.68); EOSINOPHILS PERCENT AUTO 5 % (0-6); Hematocrit 23.9 % (33.0-51.0); Hemoglobin 7.6 g/dL (11.5-16.0); IMMATURE GRAN ABSOLUTE AUTO 0.01 K/mm3 (0.00-0.10); IMMATURE GRAN PERCENT AUTO 0 % (0-1); LYMPHOCYTES ABSOLUTE AUTO 0.99 K/mm3 (0.84-5.20); LYMPHOCYTES PERCENT AUTO 36 % (21-46); MONOCYTES ABSOLUTE AUTO 0.25 K/mm3 (0.16-1.47); MONOCYTES PERCENT AUTO 9 % (4-13); Mean Corpuscular HGB 34.1 pg (26.0-34.0); Mean Corpuscular HGB Conc 31.8 g/dL (31.5-36.5); Mean Corpuscular Volume 107 fL (80-100); Mean Platelet Volume 10.1 fL (9.1-12.4); NEUTROPHILS ABSOLUTE AUTO 1.39 K/mm3 (1.96-9.15); NEUTROPHILS PERCENT AUTO 50 % (41-73); Platelet Count 71 K/mm3 (150-400); RDW Coefficient Variation 14.9 % (11.7-14.2); RDW Standard Deviation 56.8 fL (35.1-46.3); Red Blood Cell Count 2.23 M/mm3 (3.80-5.20); White Blood Cell Count 2.79 K/mm3 (4.00-11.30)
[2020-07-12 05:53] LABS: Anion Gap 6 mmol/L (6-16); Blood Urea Nitrogen 9 mg/dL (8-24); Bun/Creatinine Ratio 15.5 (12.0-20.0); CO2, Blood 25 mmol/L (21-32); Calcium, Blood 7.4 mg/dL (8.5-10.1); Chloride, Blood 109 mmol/L (98-108); Creatinine, Blood 0.58 mg/dL (0.40-1.00); Glomerular Filtration Rate >60 (60-); Glucose, Blood 130 mg/dL (70-99); Potassium, Blood 3.9 mmol/L (3.5-5.5); Sodium, Blood 140 mmol/L (136-145)
--- NOTE | 2020-07-12 08:12 | NUR ---
SHIFT SUMMARY ALERT AND ABLE TO ANSWER QUESTIONS. NOTED GRADIOSE IDEAS AND MULTIPLE REQUESTS/NEEDS TO BE MET. C/O PAIN/DISCOMFORT TO R SIDE IN MULTIPLE AREAS; MEDICATED PER EMAR. CONTINUED TO RE-ASSURE THAT THE DOCTOR WAS MONITORING HER AND IT WAS VERY IMPORTANT THAT SHE STAY UNTIL THE DOCTOR OKAYS HER TO BE DISCHARGED; AGREEABLE. CIWA'S REMAINED <8 T/O SHIFT. IV SANDOSTATIN CONTINUED TO INFUSE WITHOUT COMPLICATIONS. DID NOT APPEAR TO REST MUCH OVERNIGHT. BED REMAINED IN LOWEST POSITION; ALARM ON. CALL LIGHT AND BELONGINGS WITHIN REACH. REPORT GIVEN TO ONCOMING RN.
--- NOTE | 2020-07-12 11:20 | NUR ---
GABRIEL KUO CALLS FOR UPDATE. ON PATIENT CONSENT TO RELEASE INFO LIST.
--- NOTE | 2020-07-12 14:46 | NUR ---
INTO [facility] VIA [employer]. History, Chart, Medications and Allergies reviewed before start of procedure.Patient confirms NPO status and agrees with scheduled surgery. Lungs clear T/O to Auscultation.PT HAS BRUISING THROUGHOUT RIGHT SIDE HEAD TO TOE. STATES IT WAS FROM A FALL.
--- NOTE | 2020-07-12 14:55 | NUR ---
07/12/20 1455 LORRIE HERNANDEZ History, Chart, Medications and Allergies reviewed before start of procedure. O2 VIA N/C INTACT THROUGHOUT SEDATION/PROCEDURE. MONITOR INTACT WITH CONTINUOUS PULSE OXIMETRY AND INTERMITTENT BP. 3-LEAD EKG REVIEWED WITH PHYSICIAN PRIOR TO START OF PROCEDURE. MAC WITH DR. SOLOMON.
--- NOTE | 2020-07-12 16:09 | NUR ---
ALERT. ORIENTED. FORGETFUL. TOLERATED UPPER ENDOSCOPY WELL. ASKS OFTEN ABOUT WHEN SHE WILL BE D'C. HAS CHANGED HER PEOPLE ON CONSENT FOR INFO. UNLABORED RESPIRATIONS. CIWA <8. PER DAY SURGERY NO ACTIVE BLEED FOUND. WCTM.
--- NOTE | 2020-07-13 05:55 | NUR ---
COST CLERK SUMMARY NO ACUTE CHANGES THIS SHIFT. PT AAOX4 AND PLEASANT. CALLS APPROPRIATELY FOR ASSISTANCE. 1 ASSIST TO THE BATHROOM. PT CONTINUES TO HAVE PAIN ON R SIDE OF BODY FROM FALL PRIOR TO ADMIT. PT HAS MANY BUMPS AND BRUISES ON THAT SIDE OF HER BODY. MEDICATED WITH 50 MCG FENTANYL IV X1 TONIGHT. VSS, WILL CONTINUE TO MONITOR.
[2020-07-13] MEDS ORDERED: Nicoderm Cq1 EAC1 TOP (12:01)
[2020-07-13] MEDS ORDERED: PANT40 PO (12:02)
[2020-07-13] MEDS ORDERED: CIPR500 PO (12:02)
--- NOTE | 2020-07-13 17:47 | NUR ---
REVIEW D'C WITH PATIENT. AWARE HAS MEDS AT [facility]. AWARE [facility] WILL CALL FOR F/U. PATIENT HAS TOLD DIFFERENT MEMBERS OF STAFF DIFFERENT STORIES; I.E. WANTING TO BE D'C HOME, WANTING TO GO TO REHAB ETC. PATIENT INFO AND MED RECORDS WAS FAXED TO [facility] IN [place] BY ANTOINETTE HU RN. PATIENT IS AWARE AND HAS TALKED TO THEM ABOUT IN PATIENT REHAB. PATIENT WILL CALL THEM TOMORROW TO SEE ABOUT GETTING A BED THERE. IN W/C W/S.O. IN ATTNEDANCE AND DISTANCE LEARNING ADMINISTRATOR TO PHARM TO CHIEF ACCOUNTING OFFICER MEDS SHE CAME IN THIS THEN TO POV.
== END 2020-07-13 17:42 | disposition home health service (06) | DRG 565 ==
LOC: ER 00:09 → MEDS 05:41 → PCU 05:41 → MEDS 07-10 16:56
PROVIDERS: Emergency Medicine; Family Medicine; Hospitalist; Student in an Organized Health Care Education/Training Program; ADMIT Internal Medicine
PROC: 0DB38ZX Excision of Lower Esophagus, Via Natural or Artificial Opening Endoscopic, Diagnostic (ICD-10-PCS; principal; 2020-07-12 14:30)
DX: T79.6XXA Traumatic ischemia of muscle, initial encounter (principal); F10.231 Alcohol dependence with withdrawal delirium; K92.0 Hematemesis; G40.909 Epilepsy, unspecified, not intractable, without status epilepticus; S80.11XA Contusion of right lower leg, initial encounter; K70.10 Alcoholic hepatitis without ascites; K70.30 Alcoholic cirrhosis of liver without ascites; W19.XXXA Unspecified fall, initial encounter; Y90.8 Blood alcohol level of 240 mg/100 ml or more; F17.210 Nicotine dependence, cigarettes, uncomplicated; D64.9 Anemia, unspecified
CPT/HCPCS: 0241U; 36415; 73030; 73070; 73600; 73701; 74177; 80048; 80053; 82550; 82553; 82607; 82728; 82746; 83540; 83550; 83690; 83735; 85025; 85027; 85610; 85730; 86850; 86900; 86901; 96365-59; 96375; 97110; 97161; 99285-25; A9270-GY; C9113; G0480; J0696; J1953; J2060; J2250; J2354; J2405; J2704; J2765; J3010; J3480; J7050; J7120; P9046; Q9967

== ENCOUNTER 2020-07-29 00:24 | Observation (INO) | payer OTHER ==
[~2020-07-29] VITALS: Ht 152.4 cm; Wt 55.6 kg
[~2020-07-29 00:24] MED LIST changes: +CIPR500 PO; +Nicoderm Cq1 EAC1 TOP; +PANT40 PO
[2020-07-29 01:33] LABS: Source, Urine Clean Catch
[2020-07-29 01:38] LABS: Bilirubin, Urine Neg (Neg); Blood, Urine 1+ (Neg); Glucose Qualitative, Urine Neg (Neg); Ketones, Urine Neg (Neg); Leukocyte Esterase, Urine Neg (Neg); Nitrite, Urine Neg (Neg); Protein, Urine Neg (Neg); Urobilinogen, Urine NORM (Normal)
[2020-07-29 01:40] LABS: Appearance, Urine Clear (Clear); Color, Urine Yellow (P-Yellow)
[2020-07-29 01:44] LABS: Bacteria Rare /hpf; Red Blood Cells, Urine 0-2 /hpf (0-2); Squamous Epithelial Cells Few /hpf (Few); White Blood Cells, Urine Rare /hpf (0-5)
[2020-07-29 01:47] LABS: BASOPHILS ABSOLUTE AUTO 0.06 K/mm3 (0.00-0.23); BASOPHILS PERCENT AUTO 1 % (0-2); EOSINOPHILS PERCENT AUTO 3 % (0-6); Hematocrit 30.2 % (33.0-51.0); Hemoglobin 9.6 g/dL (11.5-16.0); IMMATURE GRAN ABSOLUTE AUTO 0.04 K/mm3 (0.00-0.10); IMMATURE GRAN PERCENT AUTO 1 % (0-1); LYMPHOCYTES ABSOLUTE AUTO 2.09 K/mm3 (0.84-5.20); LYMPHOCYTES PERCENT AUTO 33 % (21-46); MONOCYTES ABSOLUTE AUTO 0.42 K/mm3 (0.16-1.47); MONOCYTES PERCENT AUTO 7 % (4-13); Mean Corpuscular HGB 33.8 pg (26.0-34.0); Mean Corpuscular HGB Conc 31.8 g/dL (31.5-36.5); Mean Corpuscular Volume 106 fL (80-100); NEUTROPHILS ABSOLUTE AUTO 3.44 K/mm3 (1.96-9.15); NEUTROPHILS PERCENT AUTO 55 % (41-73); Platelet Count 139 K/mm3 (150-400); RDW Coefficient Variation 13.9 % (11.7-14.2); RDW Standard Deviation 53.6 fL (35.1-46.3); Red Blood Cell Count 2.84 M/mm3 (3.80-5.20); White Blood Cell Count 6.25 K/mm3 (4.00-11.30)
[2020-07-29 01:49] LABS: Alanine Aminotransfer (ALT/SGP 22 U/L (12-78); Albumin, Blood 2.5 g/dL (3.4-5.0); Albumin/Globulin Ratio 0.7 (0.8-1.8); Alk Phos 100 U/L (50-136); Anion Gap 4 mmol/L (6-16); Aspartate Aminotrans (AST/SGOT 53 U/L (12-37); Bilirubin, Total 1.6 mg/dL (0.1-1.0); Blood Urea Nitrogen 3 mg/dL (8-24); Bun/Creatinine Ratio 6.4 (12.0-20.0); CO2, Blood 26 mmol/L (21-32); Calcium, Blood 7.7 mg/dL (8.5-10.1); Chloride, Blood 117 mmol/L (98-108); Creatinine, Blood 0.47 mg/dL (0.40-1.00); Ethanol (Alcohol), Blood, Med 164 mg/dL; Globulin, Blood 3.7 g/dL (2.2-4.0); Glomerular Filtration Rate >60 (60-); Glucose, Blood 74 mg/dL (70-99); Potassium, Blood 3.9 mmol/L (3.5-5.5); Sodium, Blood 147 mmol/L (136-145); Total Protein, Blood 6.2 g/dL (6.4-8.2)
[2020-07-29 01:51] LABS: U Amphetamine Screen Not Detected; U Barbituate Screen Not Detected; U Benzodiazapine Screen DETECTED; U Buprenorphine Screen Not Detected; U Cannabinoids Screen Not Detected; U Cocaine Screen Not Detected; U Methadone Screen Not Detected; U Methamphetamine Screen Not Detected; U Opiates Screen Not Detected; U Oxycodone Screen Not Detected; U Phencyclidine Screen Not Detected; U Propoxyphene Screen Not Detected
[2020-07-29 01:56] LABS: Acetaminophen, Random <2.0 ug/mL (10.0-30.0); Salicylate <1.7 mg/dL (2.8-20.0)
[2020-07-29] MEDS ORDERED: CHLO25 PO (02:04)
[2020-07-29 03:01] LABS: Influenza A, PCR Negative (NEGATIVE); Influenza B, PCR Negative (NEGATIVE); Resp Syncytial Virus, PCR Negative (NEGATIVE); SARS-Cov-2 (COVID-19) PCR, MMC Negative (NEGATIVE)
[2020-07-29 04:07] LABS: International Normalized Ratio 1.4; Prothrombin Time Results 14.7 Sec (9.7-11.5)
--- NOTE | 2020-07-29 05:46 | NUR ---
PT UP TO ICU 8 FROM ED. SHE IS SOLMNOLENT AND NOT ANSWERING QUESTIONS. SHE ONLY STATES SHE IS COLD. SHE IS CURRENTLY PROTECTING HER AIRWAY AND SATTING WELL ON RA. PER POISON CONTROL MONITOR CATALYTIC CONVERTER OPERATOR HELPER/RESP DEPRESSION X 12 HRS. IF PT CAN NOT PROTECT AIRWAY AND INTUBATION IS CONSIDERED MAY GIVE FLUMAZENIL BUT CALL POISON CONTROL FIRST D/T RISK OF BENZO REVERSAL AND SEIZURES. PT HAS AN IRREGULAR BEAT. VSS. REJ PIV THAT HAS A BANANA BAG INFUSING. PT IS CURRENTLY SLEEPING.
--- NOTE | 2020-07-29 09:00 | NUR ---
ASSUMED CARE REPORT FROM DIANA PETERSON. PT RESTING IN BED. WAKES c VERBAL STIMULI. ORIENTED TO SELF AND PLACE. ANSWERS QUESTIONS c ONE WORD ANSWERS OR NODS HEADS. RETURNS TO SLEEP WHEN UNDISTRUBED. MAEW. LUNGS CLEAR. VSS. IVF c VITAMINS INFUSING VIA REJ. HIGH RISK SI PRECAUTIONS, 1:1 SITTER AND CAMERA OBSERVATION IN PLACE. WILL CONTINUE TO MONITOR.
[2020-07-29 10:11] LABS: BASOPHILS ABSOLUTE AUTO 0.04 K/mm3 (0.00-0.23); BASOPHILS PERCENT AUTO 1 % (0-2); EOSINOPHILS ABSOLUTE AUTO 0.22 K/mm3 (0.00-0.68); EOSINOPHILS PERCENT AUTO 5 % (0-6); Hematocrit 26.7 % (33.0-51.0); Hemoglobin 8.5 g/dL (11.5-16.0); IMMATURE GRAN ABSOLUTE AUTO 0.01 K/mm3 (0.00-0.10); IMMATURE GRAN PERCENT AUTO 0 % (0-1); LYMPHOCYTES ABSOLUTE AUTO 1.71 K/mm3 (0.84-5.20); LYMPHOCYTES PERCENT AUTO 40 % (21-46); MONOCYTES ABSOLUTE AUTO 0.34 K/mm3 (0.16-1.47); MONOCYTES PERCENT AUTO 8 % (4-13); Mean Corpuscular HGB 33.3 pg (26.0-34.0); Mean Corpuscular HGB Conc 31.8 g/dL (31.5-36.5); Mean Corpuscular Volume 105 fL (80-100); Mean Platelet Volume 9.7 fL (9.1-12.4); NEUTROPHILS ABSOLUTE AUTO 1.91 K/mm3 (1.96-9.15); NEUTROPHILS PERCENT AUTO 45 % (41-73); NRBC ABSOLUTE 0.02 K/mm3 (0.00-0.02); NRBC Auto 0.5 /100 WBC (0.0-0.2); Platelet Count 124 K/mm3 (150-400); RDW Coefficient Variation 13.7 % (11.7-14.2); RDW Standard Deviation 53.1 fL (35.1-46.3); Red Blood Cell Count 2.55 M/mm3 (3.80-5.20); White Blood Cell Count 4.23 K/mm3 (4.00-11.30)
[2020-07-29 10:29] LABS: Alanine Aminotransfer (ALT/SGP 19 U/L (12-78); Albumin, Blood 2.1 g/dL (3.4-5.0); Albumin/Globulin Ratio 0.7 (0.8-1.8); Alk Phos 75 U/L (50-136); Anion Gap 5 mmol/L (6-16); Aspartate Aminotrans (AST/SGOT 35 U/L (12-37); Bilirubin, Total 1.5 mg/dL (0.1-1.0); Blood Urea Nitrogen 3 mg/dL (8-24); Bun/Creatinine Ratio 8.6 (12.0-20.0); CO2, Blood 26 mmol/L (21-32); Calcium, Blood 7.1 mg/dL (8.5-10.1); Chloride, Blood 116 mmol/L (98-108); Creatinine, Blood 0.35 mg/dL (0.40-1.00); Globulin, Blood 3.2 g/dL (2.2-4.0); Glomerular Filtration Rate >60 (60-); Glucose, Blood 75 mg/dL (70-99); Potassium, Blood 3.3 mmol/L (3.5-5.5); Sodium, Blood 147 mmol/L (136-145); Total Protein, Blood 5.3 g/dL (6.4-8.2)
--- NOTE | 2020-07-29 17:05 | NUR ---
SHIFT SUMMARY PT STATUS CHANGED TO MED s TELE. PT A&OX4. ANSWERS QUESTIONS APPROPRIATELY, FOLLOWS COMMANDS. PT DENIES SI/HI. COOPERATIVE c CARE. PT LETHARGIC DURING DR NEWMAN ASSESSMENT. PER DR WOODRUFF, PLAN FOR TELEPSYCH IN AM, SI RISK CHANGED TO MODERATE. PT REQUESTING ASSESSMENT SOONER, DR HOLDEN NOTIFIED, TELEPSYCH ORDERED FOR THIS EVENING. VSS. PT CONTINUES TO BE ON CAMERA MONITORING, 1:1 OBS D/C'D. WILL CONTINUE TO MONITOR UNTIL REPORT TO ONCOMING NURSE.
--- NOTE | 2020-07-29 19:00 | NUR ---
ASSUMED CARE NOTE: ASSUMED CARE OF PT AT 1900, RECEVIED REPORT FROM MONIQUE PETERSON. PT IS ALERT AND ORIENTEDX3, ABLE TO ANSWER QUESTIONS APPROPRIATLY. ABLE TO COMPLETE MEDICAL HISTORY AND MED REC. PT IS ON RA WITH SPO2 ABOVE 95% NO RESPRIATORY DISTRESS NOTED. VITALS STABLE. PT REQUESTING FOR FOOD AND WATER. PT STS SHE IS IN PAIN FROM A PREVIOUS FALL, WILL REVIEW EMAR. STS SHE HAS PAIN EVERYWHERE. UNABLE TO DESCRIBE PAIN. STS " I JUST WANT TO HAVE SOMETHING TO SLEEP"
--- NOTE | 2020-07-29 21:00 | NUR ---
IN [facility] ROOM AT 2029. REASSESSED PT FOR SI USING THE [place] SI ASSESSMENT. PT ANSWERED YES TO MOST OF THE QUESTIONS. WAS CHANGED TO HIGH RISK AT 2119, HOSPITALIST SANJEEV JACOBS. PT HAD TELE-PSYCH APPOINTMENT FROM [phone].
[2020-07-30 03:45] LABS: BASOPHILS ABSOLUTE AUTO 0.05 K/mm3 (0.00-0.23); BASOPHILS PERCENT AUTO 1 % (0-2); EOSINOPHILS ABSOLUTE AUTO 0.19 K/mm3 (0.00-0.68); EOSINOPHILS PERCENT AUTO 4 % (0-6); Hematocrit 29.2 % (33.0-51.0); Hemoglobin 9.3 g/dL (11.5-16.0); IMMATURE GRAN ABSOLUTE AUTO 0.01 K/mm3 (0.00-0.10); IMMATURE GRAN PERCENT AUTO 0 % (0-1); LYMPHOCYTES ABSOLUTE AUTO 1.69 K/mm3 (0.84-5.20); LYMPHOCYTES PERCENT AUTO 35 % (21-46); MONOCYTES ABSOLUTE AUTO 0.35 K/mm3 (0.16-1.47); MONOCYTES PERCENT AUTO 7 % (4-13); Mean Corpuscular HGB 32.9 pg (26.0-34.0); Mean Corpuscular HGB Conc 31.8 g/dL (31.5-36.5); Mean Corpuscular Volume 103 fL (80-100); Mean Platelet Volume 9.8 fL (9.1-12.4); NEUTROPHILS ABSOLUTE AUTO 2.51 K/mm3 (1.96-9.15); NEUTROPHILS PERCENT AUTO 52 % (41-73); Platelet Count 128 K/mm3 (150-400); RDW Coefficient Variation 13.4 % (11.7-14.2); RDW Standard Deviation 51.6 fL (35.1-46.3); Red Blood Cell Count 2.83 M/mm3 (3.80-5.20)
[2020-07-30 04:00] LABS: Albumin, Blood 2.3 g/dL (3.4-5.0); Anion Gap 6 mmol/L (6-16); Blood Urea Nitrogen 5 mg/dL (8-24); Bun/Creatinine Ratio 10.6 (12.0-20.0); CO2, Blood 24 mmol/L (21-32); Calcium, Blood 7.7 mg/dL (8.5-10.1); Chloride, Blood 114 mmol/L (98-108); Creatinine, Blood 0.47 mg/dL (0.40-1.00); Glomerular Filtration Rate >60 (60-); Glucose, Blood 91 mg/dL (70-99); Phosphorus, Blood 3.1 mg/dL (2.5-4.9); Potassium, Blood 3.5 mmol/L (3.5-5.5); Sodium, Blood 144 mmol/L (136-145)
--- NOTE | 2020-07-30 06:00 | NUR ---
SHIFT SUMMARY: 1:1 SITTER AT BEDSIDE SINCE PT WAS SWITCHED TO HIGH RISK SI PERCAUTIONS. PT CONTINUES TO BE ALERT AND ORIENTEDX3. PT HAS NOT SLEPT MOST OF THE SHIFT, SHE HAS BEEN UP, WATCHING TV. HAVING CONVERSATIONS WITH SITTER, LAUGHING AND TALKING ABOUT MOVIES. WHEN THIS RN ASSIST PT TO BEDSIDE TOILET, PT HAS A RIGHT LEG LIMP, SHE HAS DIFFICULTY GETTING INTO BED, STS SHE IS PAIN FROM A FALL A MONTH AGO. HOWEVER, BOTH NURSING ASSISTANTS STATE THAT WHEN THEY HELP HER, SHE HAS NO LIMP WHEN WALKING, AND SHE DOES NOT COMPLAIN OF PAIN/ OR HAVE DIFFICULTY GETTING HER IN BED. PT IS WORRIED ABOUT HER BELONGINGS THAT ARE WITH HER EX-BOYFRIEND. PT IS NOW SLEEPING AND RESTING. SITTER AT BEDSIDE, WILL CONTINUE TO MONITOR PT UNTIL REPORT IS GIVEN TO ONCOMING SHIFT.
--- NOTE | 2020-07-30 07:31 | NUR ---
PER TELEPSYCH EVAL, PT IS RECOMMENDED FOR INPATIENT PSYCH TREATMENT. WILL PRINT FULL REPORT WHEN AVAILABLE.
--- NOTE | 2020-07-30 07:50 | NUR ---
ASSUMED CARE RECEIVED REPORT FROM NICHOLAS MORGAN. PT IS LYING IN BED, CALL LIGHT WITHIN REACH. SITTER WITHIN VIEW OF PT. SHE IS MEDICALLY STABLE, PER REPORT. WILL CONTINUE TO MONITOR. TELE PSYCH REPORT NOT AVAILABLE TO VIEW AT THIS MOMENT.
--- NOTE | 2020-07-30 08:50 | NUR ---
SUICIDAL IDEATIONS PT STATES SHE IS HAVING NO CURRENT SUICIDAL IDEATIONS. SHE STATES SHE SOMETIMES FEELS SO DEPRESSED WHERE SHE WILL THINK ABOUT IT TEMPORARILY, BUT "THATS NORMAL". CURRENTLY, MOTIVATED SHE WANTS TO GET TO [facility]. TELE-PSYCH WILL BE DOING ANOTHER APPOINTMENT WITH PT TODAY, DUE TO TELE-PSYCH THINKING [facility] WAS AN [facility] FACILITY VS WHAT IT REALLY IS: [facility]. THEIR RECOMENDATION FOR INPATIENT PSYCH WILL BE REEVALUATED. THIS IS ORDERED PER DR. CHAUDHARY.
--- NOTE | 2020-07-30 14:31 | NUR ---
DR. NIX/DISCHARGE PLAN PT STATING SHE WOULD LIKE TO WAIT UNTIL SATURDAY TO GO TO [facility] SO SHE HAS TIME TO GATHER HER BELONGINGS AND GO TO "SOME APPOINTMENTS" PRIOR TO ENTERING TREATMENT. SPOKE WITH JHONATHAN AT [facility] AND HE STATES THE PT WOULD HAVE A BED IF SHE SHOWED UP ON SATURDAY. CALLED AND SPOKE WITH TELEPSYCH DR. NIX AND DISCUSSED WHETHER IT WOULD BE SAFE FOR PT TO BE DISCHARGED FROM THE HOSPITAL TO A FRIEND, WITH THE PLAN TO CHECK IN TO [facility] ON SATURDAY. DR NIX SAID IT WOULD BE SAFE TO DISCHARGE THE PT GIVEN THAT SHE HAS A PLAN TO GO TO [facility] SATUR[place]. PT PLANS TO STAY WITH FRIEND, NETTE, UNTIL CHECK IN AT [facility]. NETTE PLANS TO PICK PT UP FROM HOSPITAL THIS EVENING. DR CHAUDHARY AGREEABLE TO PLAN - PLANS TO DISCHARGE PT.
== END 2020-07-30 18:56 | disposition home or self-care (01) ==
LOC: ER 00:24 → ICUW 00:25 → ICUE 00:25
PROVIDERS: Emergency Medicine; Family Medicine; ADMIT Internal Medicine
DX: T42.4X2A Poisoning by benzodiazepines, intentional self-harm, initial encounter (principal); F33.9 Major depressive disorder, recurrent, unspecified; R45.851 Suicidal ideations; F17.210 Nicotine dependence, cigarettes, uncomplicated; G40.909 Epilepsy, unspecified, not intractable, without status epilepticus; F10.229 Alcohol dependence with intoxication, unspecified; E87.0 Hyperosmolality and hypernatremia; K70.30 Alcoholic cirrhosis of liver without ascites; E87.6 Hypokalemia; D64.9 Anemia, unspecified; D69.6 Thrombocytopenia, unspecified; Z88.5 Allergy status to narcotic agent; Z79.899 Other long term (current) drug therapy; Z20.822 Contact with and (suspected) exposure to COVID-19; Z23 Encounter for immunization; Y90.6 Blood alcohol level of 120-199 mg/100 ml
CPT/HCPCS: 0241U; 36415; 80053; 80069; 81001; 81025; 85025; 85610; 93005; 93010; 96360; 96361; 96365; 96366; 96367; 96368; 96372; 96375; 99285-25; A9270; C9113; G0378; G0480; J1650; J1953; J3411; J3475; J3480; J7030; J7042

== ENCOUNTER 2020-08-04 17:06 | Emergency (ER) | payer OTHER ==
[~2020-08-04] VITALS: Ht 165.1 cm; Wt 59.9 kg
== END 2020-08-04 20:30 | disposition home or self-care (01) ==
LOC: ER 17:06
DX: F10.129 Alcohol abuse with intoxication, unspecified (principal); M54.2 Cervicalgia; Z79.899 Other long term (current) drug therapy
CPT/HCPCS: 99283; A9270

== ENCOUNTER 2020-08-05 15:59 | Emergency (ER) | payer OTHER ==
[~2020-08-05] VITALS: Ht 162.6 cm; Wt 54.4 kg
[2020-08-05 16:20] LABS: BASOPHILS ABSOLUTE AUTO 0.06 K/mm3 (0.00-0.23); BASOPHILS PERCENT AUTO 1 % (0-2); EOSINOPHILS PERCENT AUTO 3 % (0-6); Hematocrit 36.5 % (33.0-51.0); Hemoglobin 11.6 g/dL (11.5-16.0); IMMATURE GRAN ABSOLUTE AUTO 0.01 K/mm3 (0.00-0.10); IMMATURE GRAN PERCENT AUTO 0 % (0-1); LYMPHOCYTES ABSOLUTE AUTO 2.48 K/mm3 (0.84-5.20); LYMPHOCYTES PERCENT AUTO 40 % (21-46); MONOCYTES ABSOLUTE AUTO 0.32 K/mm3 (0.16-1.47); MONOCYTES PERCENT AUTO 5 % (4-13); Mean Corpuscular HGB 32.1 pg (26.0-34.0); Mean Corpuscular HGB Conc 31.8 g/dL (31.5-36.5); Mean Corpuscular Volume 101 fL (80-100); Mean Platelet Volume 9.9 fL (9.1-12.4); NEUTROPHILS ABSOLUTE AUTO 3.19 K/mm3 (1.96-9.15); NEUTROPHILS PERCENT AUTO 51 % (41-73); Platelet Count 140 K/mm3 (150-400); RDW Coefficient Variation 13.2 % (11.7-14.2); RDW Standard Deviation 49.1 fL (35.1-46.3); Red Blood Cell Count 3.61 M/mm3 (3.80-5.20); White Blood Cell Count 6.26 K/mm3 (4.00-11.30)
[2020-08-05 16:42] LABS: Alanine Aminotransfer (ALT/SGP 48 U/L (12-78); Albumin, Blood 2.8 g/dL (3.4-5.0); Albumin/Globulin Ratio 0.7 (0.8-1.8); Alk Phos 135 U/L (50-136); Anion Gap 9 mmol/L (6-16); Aspartate Aminotrans (AST/SGOT 108 U/L (12-37); Bilirubin, Total 1.4 mg/dL (0.1-1.0); Blood Urea Nitrogen 7 mg/dL (8-24); Bun/Creatinine Ratio 21.2 (12.0-20.0); CO2, Blood 22 mmol/L (21-32); Calcium, Blood 7.9 mg/dL (8.5-10.1); Chloride, Blood 115 mmol/L (98-108); Creatinine, Blood 0.33 mg/dL (0.40-1.00); Globulin, Blood 4.3 g/dL (2.2-4.0); Glomerular Filtration Rate >60 (60-); Glucose, Blood 126 mg/dL (70-99); Potassium, Blood 3.7 mmol/L (3.5-5.5); Sodium, Blood 146 mmol/L (136-145); Total Protein, Blood 7.1 g/dL (6.4-8.2)
[2020-08-05 16:44] LABS: Ethanol (Alcohol), Blood, Med 346 mg/dL
[2020-08-05 17:36] LABS: U Amphetamine Screen Not Detected; U Barbituate Screen Not Detected; U Benzodiazapine Screen DETECTED; U Buprenorphine Screen Not Detected; U Cannabinoids Screen Not Detected; U Cocaine Screen Not Detected; U Methadone Screen Not Detected; U Methamphetamine Screen Not Detected; U Opiates Screen Not Detected; U Oxycodone Screen Not Detected; U Phencyclidine Screen Not Detected; U Propoxyphene Screen Not Detected
== END 2020-08-05 18:19 | disposition home or self-care (01) ==
LOC: ER 15:59
PROVIDERS: Student in an Organized Health Care Education/Training Program
DX: F10.129 Alcohol abuse with intoxication, unspecified (principal); Z88.5 Allergy status to narcotic agent; S09.90XA Unspecified injury of head, initial encounter; Y90.8 Blood alcohol level of 240 mg/100 ml or more
CPT/HCPCS: 36415; 70450; 80053; 85025; 99284-25; G0480